=== PATIENT | female | born 1950 | race Caucasian/White ===

== ENCOUNTER 2024-05-24 09:38 | Inpatient (IN) ==
--- NOTE | 2024-04-18 13:48 | PAT Medication Instructions ---
Medication Instructions Date of Service April 18, 2024 Home Medications acetaminophen 650 mg tablet,extended release (Tylenol 8 Hour) 650 mg PO DAILY albuterol sulfate 90 mcg/actuation aerosol inhaler 1 inh inhalation QID PRN sob aspirin 81 mg tablet,delayed release 81 mg PO QAM atenolol 25 mg tablet 25 mg PO QAM clopidogrel 75 mg tablet (Plavix) 75 mg PO QAM diltiazem HCl 60 mg tablet 60 mg PO QAM docusate sodium 100 mg capsule 100 mg PO DAILY ezetimibe 10 mg tablet (Zetia) 10 mg PO HS famotidine 20 mg tablet 20 mg PO DAILY losartan 25 mg tablet 25 mg PO DAILY melatonin 3 mg tablet 3 mg PO HS rosuvastatin 40 mg tablet 40 mg PO HS trazodone 50 mg tablet 75 mg PO HS ASK your prescriber and surgeon aspirin 81 mg tablet,delayed release 81 mg PO QAM clopidogrel 75 mg tablet (Plavix) 75 mg PO QAM DO NOT take the morning of surgery docusate sodium 100 mg capsule 100 mg PO DAILY losartan 25 mg tablet 25 mg PO DAILY Take morning of surgery With a small sip of water, OTHERWISE NOTHING TO EAT OR DRINK AFTER MIDNIGHT: acetaminophen 650 mg tablet,extended release (Tylenol 8 Hour) 650 mg PO DAILY albuterol sulfate 90 mcg/actuation aerosol inhaler 1 inh inhalation QID PRN sob (use if needed; please bring rescue inhaler with you to hospital day of surgery if possible) atenolol 25 mg tablet 25 mg PO QAM diltiazem HCl 60 mg tablet 60 mg PO QAM Take evening before surgery acetaminophen 650 mg tablet,extended release (Tylenol 8 Hour) 650 mg PO DAILY albuterol sulfate 90 mcg/actuation aerosol inhaler 1 inh inhalation QID PRN sob (if needed) ezetimibe 10 mg tablet (Zetia) 10 mg PO HS melatonin 3 mg tablet 3 mg PO HS rosuvastatin 40 mg tablet 40 mg PO HS trazodone 50 mg tablet 75 mg PO HS Other Notes If you have any questions please call us at [phone] or [phone] or [phone] or [phone]
--- NOTE | 2024-04-25 13:14 | Anesthesiology Consultation ---
Date of Service April 25, 2024 Assessment & Plan (1) Encounter for pre-operative examination: - Infectious disease screening: Per assessment on 04/25/24- No known recent infectious disease contacts or current infectious disease symptoms. - LUE limb restriction - ASA/Plavix instructions per surgeon/prescriber - Vascular visit (01/02/24): "Regarding right leg.. Known R limb occlusion since 2018.. Some patency in upper [place] REIA/RIIA and femoral artery supplying the right leg.. Currently without rest pain, ulcers, or gangrene.. As previously mentioned, could attempt R groin exposure/endart + attempt to recanalize chronically occluded R limb; however, this carries GREAT risk (exposing prosthetic). Will reserve this procedure for limb-threatening situation.. Regard ing left leg.. L dist anastomosis with unchanged velocity.. 2023 CTA shows moderate disease... Discussed ongoing short-interval surveillance versus intervention - - Intervention could be: attempt at endo via arm (likely R given L subclavian disease) versus re-operative L groin.. For now, she declines surgical intervention.. Mild carotid disease, which can be medically managed. NO plan to re-image at present.. L subclavian occlusion; however, the BOYCE is wide off the HIEU.. Obtain BP readings in the right arm for accuracy given L subclavian disease and breast cancer. Continue 81 mg ASA daily for atherosclerosis/PAD/carotid disease/subclavian disease.. On 75 mg Plavix daily for CAD/CABG, per Cardiology Continue 40 mg Crestor daily and 10 mg Zetia for dyslipidemia.. RTC in [address] Montes De Oca at [place] with enrique and aortic duplex a few weeks prior" - [facility] Pharm[facility] Clinic visit (04/03/24): "Reviewed most recent lipid panel results with patient; discussed each component of lipid panel and optimal levels of such components.. LDL increased from last year.. We believe the increase in LDL was due to noncompliance..Called pharmacy today and pharmacist reports patient goes months without picking up pill packs and they have had several compliance conversations with patient..Today, patient is feeling well, no complaints. Discussed above noncompliance and patient does endorse not taking her Medications at least 10 days over the past month.. Last week, patient moved to pill packs from covert counter, which has helped her remember to take the medications. Patient will focus on medication compliance.." Recommend cholesterol panel 2nd-3rd week on May prior to back surgery (ideally week of 05/20/24). - Cardiology visit (04/03/24): "CAD (status post CABG x2 10/21/2008; HIEU to LAD and BOYCE off HIEU toLCx).. PAD (S/P aortobifemoral bypass in [place] 07/25/2000 for occlusive disease with claudication. R-limb known to be occluded since at least 2017).. Carotid artery disease (50-69% stenosis in right and left carotid arteries).. Patient presents for preoperative evaluation prior to back surgery. She states that despite thyroid back pain she has been relatively active. She denies chest pain, dyspnea, orthopnea, PND, lower extremity edema, palpitations, or syncope. She is able to walk up multiple flights of steps, scrubbed floors and move heavy furniture without any exertional symptoms.. On clinical exam she is euvolemic. ECG done today showed sinus rhythm with no acute ischemic changes. Patient able to get to more than 4 Mets of activity without any exertional symptoms. She is moderate risk for major adverse cardiac events from a cardiac standpoint. The risks discussed with patient and patient understands these risks. From a cardiac standpoint patient is okay to hold Plavix however she does have significant extensive peripheral arterial disease and would recommend discussing with Vascular Surgery as well if okay from their end to hold Plavix. Patient states that she has mistakenly not been taking her Crestor or Zetia for months prior to her most recent lipid panel. Her elevated LDL was most likely due to noncompliance. I advised patient about the importance of medication compliance. Patient understands this and will be more compliant.." - Pending: * Awaiting review of preop CXR- Done [facility] 04/25, report pending. * Awaiting surgeon-ordered PCP preop evaluation ([facility]/appt 04/26). * Awaiting preop cholesterol labs ([facility], [facility] 2nd-3rd week of May 2024). Chart Review Chart Review: Patient seen in Pre Admission Testing Teaching & Discussion Pre-Anesthesia Teaching/Discussion Notes: Instructed NPO after midnight before surgery,except medications with 15 cc of water. Medication instructions provided according to the PAT guidelines. History Surgery Operation Date: 05/24/24 09:35 Proposed Procedures p Removal Hardware L5-S1, Decompression and Fusion L4-L5, with Spinal Cord Monitoring - Nitish Morris DO Height/Weight Height: 5 ft Weight: 47.174 kg Allergies Allergy/AdvReac Type Severity Reaction Status Date / Time benzonatate Allergy Unknown Tessalon Verified 04/19/24 11:14 Perles- Rash gabapentin Allergy Bruising Verified 04/25/24 13:10 (per [facility] records) Medications Home Medications Medication Instructions Recorded Confirmed Last Taken acetaminophen 650 mg 650 mg PO DAILY 04/18/24 04/18/24 Unknown tablet,extended release (Tylenol 8 Hour) albuterol sulfate 90 mcg/actuation 1 inh inhalation QID PRN sob 04/18/24 04/18/24 Unknown aerosol inhaler aspirin 81 mg tablet,delayed 81 mg PO QAM 04/18/24 04/18/24 Unknown release atenolol 25 mg tablet 25 mg PO QAM 04/18/24 04/18/24 Unknown clopidogrel 75 mg tablet (Plavix) 75 mg PO QAM 04/18/24 04/18/24 Unknown diltiazem HCl 60 mg tablet 60 mg PO QAM 04/18/24 04/18/24 Unknown docusate sodium 100 mg capsule 100 mg PO DAILY 04/18/24 04/18/24 Unknown ezetimibe 10 mg tablet (Zetia) 10 mg PO HS 04/18/24 04/18/24 Unknown famotidine 20 mg tablet 20 mg PO DAILY 04/18/24 04/18/24 Unknown losartan 25 mg tablet 25 mg PO DAILY 04/18/24 04/18/24 Unknown melatonin 3 mg tablet 3 mg PO HS 04/18/24 04/18/24 Unknown rosuvastatin 40 mg tablet 40 mg PO HS 04/18/24 04/18/24 Unknown trazodone 50 mg tablet 75 mg PO HS 04/18/24 04/18/24 Unknown duloxetine 60 mg capsule,delayed 60 mg PO DAILY 04/25/24 04/25/24 Unknown release Past Medical History Medical History (Updated 04/25/24 @ 15:28 by Faith Finley) Asthma CAD (coronary artery disease) CABG x2 (2008) Carotid artery stenosis Carotid duplex 02/2023: < 50% B/L ICA stenosis Chronic back pain Degenerative disc disease History of COVID-2019- Asymptomatic Hx of breast cancer (2008) Left breast cancer- s/p surgical intervention + letrozole in the past LUE limb restriction Hyperlipidemia Hypertension Osteoarthritis Peripheral vascular disease Exercise / Class Metabolic Activity III < 4 Walking/Shop/Light housework Past Family History Family History Other No family history of adverse response to anesthesia Past Surgical History Surgical History H/O left mastectomy with lymph node removal History of colonoscopy History of open reduction and internal fixation (ORIF) procedure right ankle with hardware Hx of cardiac cath (2008) [facility] S/P CABG (coronary artery bypass graft) (2008) 2 vessels S/P epidural steroid injection S/P lumbar fusion S/P rotator cuff repair right shoulder S/P vascular bypass (07/2000) Aortic-femoral bypass graft ([facility]) Past Anesthesia History No Hx of Anesthesia Complications and No Family Hx of Anesthesia Complications History of PONV No Hx of Motion Sickness and History of PONV Social History Smoking Status: Current every day smoker Smoking cigarettes per day: 3 cigs/daily (advised on policy) Do You Dip or Chew Tobacco: No Hx Alcohol Use: No Hx Substance Use: No substance use type: does not use Review of Systems Patient denies chest pain, shortness of breath, dyspnea on exertion, fever, chills, cough, wheezing, palpitations. Physical Exam Vital Signs BP 150/84 P 65 TEMP 98.2 SP02 98%RA RESP 16 Physical Full cervical extension range of motion. Full TMJ range of motion. TMD 3 finger breaths Mallampati Score III Dentition: full upper/lower dentures Lungs: clear throughout to auscultation Cardiac: regular rate and rhythm, no murmurs noted Spine: normal Carotid arteries: B/L bruits Extremities: no LE edema Lab Results Anesthesia Preop Results Results Anesthesia Widget: WBC 8.59 K/ul (4.8-10.8) 04/25/24 Hgb 13.0 g/dl (12.0-16.0) 04/25/24 Hct 40.1 % (37.0-47.0) 04/25/24 Plt 194 K/uL (130-400) 04/25/24 Na 139 mmol/L (136-145) 04/25/24 K 4.8 mmol/L (3.5-5.1) 04/25/24 Cl 105 mmol/L (98-107) 04/25/24 CO2 29 mmol/L (21-32) 04/25/24 BUN 11 mg/dl (6-23) 04/25/24 Creat 0.45 mg/dl (0.6-1.2) L 04/25/24 Glucose Level 85 mg/dl (70-99(Fasting)) 04/25/24 PT 10.7 Seconds (9.0-12.0) 04/25/24 PTT 27 Seconds (21-31) 04/25/24 INR 1.0 (0.9-1.1) 04/25/24 Urine Color Yellow 04/25/24 Urine Appearance Clear (Clear) 04/25/24 Urine pH 5.5 (4.5-7.5) 04/25/24 Urine Specific [place] 1.017 (1.000-1.030) 04/25/24 Urine Protein Negative (Negative) 04/25/24 Urine Glucose (UA) Negative (Negative) 04/25/24 Urine Ketones Negative (Negative) 04/25/24 Urine Blood Negative (Negative) 04/25/24 Urine Nitrite Negative (Negative) 04/25/24 Urine Bilirubin Negative (Negative) 04/25/24 Urine Urobilinogen Negative (Negative) 04/25/24 Urine Leukocyte Esterase Negative (Negative) 04/25/24 Blood Type A Positive 04/25/24 Antibody Screen NEGATIVE 04/25/24 Testing Electrocardiogram Date: 04/03/24 NSR at 77bpm. Possible LAE. NS ST/TWA. unconfirmed tracings. Reviewed at preop cardiology visit from same day > "ECG done today showed sinus rhythm at no acute ischemic changes." Echocardiogram Date: 02/18/19 LVEF 60 to 64%. No LV segmental wall motion abnormalities. Nondilated cardiac chambers. No significant valvular disease. Grade 1 diastolic dysfunction. Other Testing Carotid duplex Date: 03/03/23 The right vertebral artery demonstrates antegrade flow. The left vertebral artery demonstrates retrograde flow. Short segment occlusion of the proximal left subclavian artery. Right carotid artery duplex examination indicates evidence of less than 50% stenosis of the internal carotid artery. Left carotid artery duplex examination indicates evidence of less than 50% stenosis of the internal carotid artery.
[~2024-05-24 09:38] MED LIST: ALLERGY Noted to ORDERED Medication SCH
[2024-05-24] MEDS: ACETAMINOPHEN 500 MG TAB PO SCH (10:44)
[2024-05-24] MEDS: LR 15ML/HR IV SCH (10:45)
[2024-05-24] MEDS: CeleBREX 200 MG CAP PO SCH (10:45)
[2024-05-24] MEDS: LR 60ML/HR IV SCH (10:45)
[2024-05-24] MEDS: GABAPENTIN 300 MG CAP PO SCH (10:45)
[2024-05-24] MEDS ORDERED: fentaNYL citrate PF 100 MCG/2 ML VIAL ONE ×2 (10:54→13:25)
--- NOTE | 2024-05-24 12:13 | History & Physical Bridge Note ---
Date of Service May 24, 2024 History & Physical Bridge Note I have examined the patient, reviewed the History & Physical and in the interval since the performance of the History & Physical I have noted the following changes of clinical significance: no changes noted
--- NOTE | 2024-05-24 12:14 | History & Physical Report ---
Date of Service May 24, 2024 Assessment & Plan (1) Lumbosacral spondylosis with radiculopathy: Plan: Removal of hardware L5-S1 decompression and fusion L4-L5 History of Present Illness Chief Complaint: Back and bilateral leg pain Primary Care Provider: Rei Magana MD This is a 73-year-old female known to me the presents with chronic persistent back and bilateral leg pain after failing course of nonoperative care is here for surgical invention. Allergies Allergy/AdvReac Type Severity Reaction Status Date / Time benzonatate Allergy Unknown Tessalon Verified 05/24/24 10:26 Perles- Rash gabapentin Allergy Bruising Verified 05/24/24 10:26 (per [facility] records) Home Medications Medication Instructions Recorded Confirmed Type acetaminophen 650 mg 650 mg PO DAILY 04/18/24 05/24/24 History tablet,extended release (Tylenol 8 Hour) albuterol sulfate 90 mcg/actuation 1 inh inhalation QID PRN sob 04/18/24 05/24/24 History aerosol inhaler aspirin 81 mg tablet,delayed 81 mg PO QAM 04/18/24 05/24/24 History release atenolol 25 mg tablet 25 mg PO QAM 04/18/24 05/24/24 History clopidogrel 75 mg tablet (Plavix) 75 mg PO QAM 04/18/24 05/24/24 History diltiazem HCl 60 mg tablet 60 mg PO QAM 04/18/24 05/24/24 History docusate sodium 100 mg capsule 100 mg PO DAILY 04/18/24 05/24/24 History ezetimibe 10 mg tablet (Zetia) 10 mg PO HS 04/18/24 05/24/24 History famotidine 20 mg tablet 20 mg PO DAILY 04/18/24 05/24/24 History losartan 25 mg tablet 25 mg PO DAILY 04/18/24 05/24/24 History melatonin 3 mg tablet 3 mg PO HS 04/18/24 05/24/24 History rosuvastatin 40 mg tablet 40 mg PO HS 04/18/24 05/24/24 History trazodone 50 mg tablet 75 mg PO HS 04/18/24 05/24/24 History duloxetine 60 mg capsule,delayed 60 mg PO DAILY 04/25/24 05/24/24 History release Past Med/Surg History Problem List (Updated 05/24/24 @ 12:14 by Nitish Morris DO) Lumbosacral spondylosis with radiculopathy Encounter for pre-operative examination Medical History (Updated 05/24/24 @ 12:14 by Nitish Morris DO) Carotid artery stenosis Carotid duplex 02/2023: < 50% B/L ICA stenosis CAD (coronary artery disease) CABG x2 (2008) Osteoarthritis Degenerative disc disease Chronic back pain Peripheral vascular disease History of COVID-2019- Asymptomatic Hx of breast cancer (2008) Left breast cancer- s/p surgical intervention + letrozole in the past LUE limb restriction Hyperlipidemia Hypertension Asthma Surgical History Hx of cardiac cath (2008) [facility] History of colonoscopy S/P epidural steroid injection S/P rotator cuff repair right shoulder History of open reduction and internal fixation (ORIF) procedure right ankle with hardware S/P lumbar fusion H/O left mastectomy with lymph node removal S/P CABG (coronary artery bypass graft) (2008) 2 vessels S/P vascular bypass (07/2000) Aortic-femoral bypass graft ([facility] [place]) Family History Other No family history of adverse response to anesthesia Social History Smoking Status: Current every day smoker Tobacco Type: Cigarettes Cigarettes Per Day: 3 cigs/daily (advised on policy); Second Hand Exposure: No; Do You Dip or Chew Tobacco: No; Tobacco Cessation Education Requested by Patient: No Hx Alcohol Use: No Hx Substance Use: No Preferred Language: Greek Communication Ability: Effective Customer Service Technician Required: No Beliefs That Will Affect Care: None Current Living Situation: Alone Other Information That Helps Us Care for You: No Feels Safe at Home: Yes Safety Concerns: Feels Safe At This Time Assistive Devices: Cane, Denture - Upper, Denture - Lower, Glasses and Walker Assistive Devices Comment: cane/walker prn Physical Exam Physical Exam: Patient is alert and oriented Heart regular rhythm Lungs clear Results & Data Results & Data Vital Signs (Past 12 Hours) Vital Signs Temp Pulse Resp BP Pulse Ox O2 Del Method 05/24/24 10:31 36.7 C 99 H 18 144/94 H 97 Room Air
[2024-05-24] MEDS ORDERED: ePHEDrine sulfate 50 MG/ML AMP IV PRN (12:37)
[2024-05-24] MEDS ORDERED: ATROPINE SULFATE 0.1 MG/ML 10ML SYR IV PRN (12:37)
[2024-05-24] MEDS ORDERED: ONDANSETRON INJ 2 MG/ML 2 ML VIAL IV PRN ×2 (12:37→17:36)
[2024-05-24] MEDS ORDERED: PROMETHAZINE HCL 6.25 MG in SODIUM CHLORIDE 0.9% 50 ML IV PRN (12:37)
[2024-05-24] MEDS ORDERED: HYDROmorphone INJ 2 MG/ML SYR/VIAL IV PRN (12:37)
[2024-05-24] MEDS: ceFAZolin 2000MG 2,000 MG/15 ML SYR IV SCH (12:54)
[2024-05-24] MEDS ORDERED: ONDANSETRON INJ 2 MG/ML 2 ML VIAL ONE (13:14)
[2024-05-24] MEDS ORDERED: PROPOFOL IV EMULSION 10 MG/ML 20 ML VIAL IV ONE (13:14)
[2024-05-24] MEDS ORDERED: ROCURONIUM BROMIDE 10 MG/ML 5 ML VIAL IV ONE ×2 (13:14→13:20)
[2024-05-24] MEDS ORDERED: DEXAMETHASONE SOD INJ 4 MG/ML VIAL ONE (13:14)
[2024-05-24] MEDS ORDERED: LIDOCAINE 2% 2 ML VIAL/AMP(20MG/ML) INFIL ONE (13:14)
[2024-05-24] MEDS: BUPIVACAINE/EPINEPHRINE 0.25% 1:200,000 30 ML VIAL ONE (13:34)
--- OUTSIDE RECORDS SUMMARY | 2024-05-24 13:51 | External Medical Summary | Summary of Care ---
Author Name Unknown Organization [facility] Address [address] [place] [address] Phone [phone] Care Team Providers Care Certified Drug Counselor Name Role Phone Finesse Hemphill PA-C Primary Care Provide r Reason for Referral * Evaluate & Treat - Unlimited Visits (Within 3 days (urgent)) - Authorized Specialty Diagnoses / Procedures Referred By Contac t Referred To Contact Pulmonary Diseases / Pulmonary Diagnoses Solitary pulmonary nodule Juan Maza MD [address] [place] [address] Phone: tel: fax: Referral ID Status Reason Start Date Expiration Date Visits Requested Visits Authorized [id number] Authorized Specialty Services Required 05/20/[phone] Question Answer Referral Priority Within 3 Days (Urgent) Primary Reason for Referral? Lung Nodule/Mass Reason for Visit * Reason Onset Date Comments STAIR Lung Nodule 05/20/2024 Encounter Details Date Type Department Care Team ([facility] Contact Info) Description 05/20/2024 Telephone STAIR LUNG NODULE [address] [place] [address] Program, Stair [address] [place] [address] STAIR Lung Nodule Allergies Active Allergy Reactions Criticality Noted Date Comments Gabapentin 09/28/[address] 06/18/2013 PER PATIENT--RASH --ITCHY ALL OVER. 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 Use as directed. 1 Each 1 04/08/20 17 Active SENNA-TABS 8.6 MG TabletIndications:C onstipation, unspecified constipation type TAKE 1 TABLET BY MOUTH AT BEDTIME 90 Tab 1 12/11/19 20 Active Acetaminophen ER 650 MG Oral Tablet Extended Release Take 1 Tablet by mouth every 8 hours as needed. Active Atenolol 25 MG Oral Tablet (Tenormin)Indicatio ns:HTN, goal below 130/80 Take 1 Tablet by mouth in the morning. 90 Tablet 3 05/04/20 23 Active DULoxetine HCl 60 MG Oral Capsule Delayed Release Particles (Cymbalta)Indicatio ns:Recurrent major depressive disorder, in partial remission (HCC),S/P lumbar spine operation Take 1 Capsule by mouth in the morning. 90 Capsule 3 05/04/20 23 Active Ezetimibe 10 MG Oral Tablet (Zetia)Indications: Dyslipidemia, goal LDL below 70 TAKE 1 TABLET BY MOUTH AT BEDTIME 90 Tablet 3 05/04/20 23 Active traZODone HCl 50 MG Oral Tablet (Desyrel)Indication s:Recurrent major depressive disorder, in partial remission (HCC) Take 1.5 Tablets by mouth at bedtime. 135 Tablet 3 05/04/20 23 Active Aspirin 81 MG Oral Tablet Delayed Release (GNP Aspirin)Indications :Recurrent major depressive disorder, in partial remission (HCC) Take 1 Tablet by mouth in the morning. 90 Tablet 3 06/16/19 24 Active Albuterol Sulfate HFA 108 (90 Base) MCG/ACT Inhalation Aerosol SolutionIndications :COPD, mild (HCC) Inhale 2 Puffs by mouth 4 times a day as needed for Shortness of Breath. 18 g 3 09/12/19 24 Active Fluticasone Propionate 50 MCG/ACT Nasal Suspension (Flonase)Indication s:Acute non-recurrent maxillary sinusitis Administer 2 Sprays into each nostril in the morning. 16 g 2 09/12/19 24 Active Melatonin 3 MG Oral TabletIndications:R ecurrent major depressive disorder, in partial remission (HCC) TAKE 2 TABLETS BY MOUTH AT BEDTIME 60 Tablet 3 01/30/20 24 Active Docusate Sodium 100 MG Oral Capsule (Colace)Indications :Recurrent major depressive disorder, in partial remission (HCC) TAKE 2 CAPSULES BY MOUTH EVERY DAY 60 Capsule 3 01/30/20 24 Active Nitroglycerin 0.4 MG Sublingual Tablet Sublingual (Nitrostat)Indicati ons:Atherosclerosis of [place] coronary artery of kake heart without angina pectoris Place 1 Tablet under the tongue every 5 minutes as needed for Pain, Chest. 25 Tablet 1 02/23/20 24 Active Clopidogrel Bisulfate 75 MG Oral Tablet (pLAVix)Indications :Coronary atherosclerosis of [place] coronary artery TAKE 1 TABLET BY MOUTH EVERY DAY MORNING 90 Tablet 03/05/20 24 Active Famotidine 20 MG Oral Tablet (Pepcid)Indications :Dyslipidemia TAKE 1 TABLET BY MOUTH EVERY DAY 90 Tablet 1 03/02/20 24 Active Losartan Potassium 25 MG Oral Tablet (Cozaar) TAKE 1 TABLET BY MOUTH EVERY DAY 90 Tablet 1 03/02/20 24 Active Rosuvastatin Calcium 40 MG Oral Tablet (Crestor)Indication s:Dyslipidemia TAKE 1 TABLET BY MOUTH AT BEDTIME 90 Tablet 03/05/20 24 Active documented as of this encounter (statuses as of 05/23/2024) Active Problems Problem Noted Date Diagnosed Date Recurrent major depressive disorder, in partial remission 07/26/2022 Coronary artery disease invo lving kake coronary artery of kake heart without angina pectoris 07/26/2022 Atherosclerosis of coronary artery bypass graft(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 Morris. Centrilobular emphysema 03/17/2017 History of breast cancer 12/19/2013 Persistent insomnia 12/02/2013 Tobacco abuse 06/10/2013 Asymptomatic bilateral carotid artery stenosis 1 Dyslipidemia, goal LDL below 70 02/16/2011 Aortocoronary bypass status 02/02/2011 HTN, goal below 130/80 documented as of this encounter (statuses as of 05/23/2024) Resolved Problems Problem Noted Date Diagnosed Date Resolved Date Idiopathic aseptic necrosis of right femur 02/18/2021 07/26/2022 Alcohol abuse with intoxication, unspecified 06/02/2021 Morbid (severe) obesity due to excess calories 09/17/2020 02/18/2021 Collapse of thoracic vertebr a with routine healing 09/17/2020 03/29/2022 Overview (03/29/2022): history Updated to be more specific. Other hyperlipidemia 09/17/2020 0818/ 022 Bimalleolar ankle fracture, right, open type I or II, with routine healing, subsequent encounter 08/03/2020 06/02/2021 Nontoxic single thyroid nodule 06/21/2019 07/26/2022 Prediabetes 02/26/2019 03/21/2024 Avascular necrosis 11/01/2018 9 Bilateral sacroiliitis 08/01/201810/05 Gastroesophageal reflux dise ase with esophagitis 02/19/2018 06/02/2021 Acute cystitis with hematuria 12/05/2017 03/23/2018 Dyslipidemia 08/22/2017 05/16/2023 Sprain of ligaments of thoracic spine 06/28/2017 08/22/2017 Atherosclerosis of k[place] co ronary artery of kake heart without angina pectoris 03/17/201712/2020 Overview (03/15/2021): More specific code in use. Recurrent major depressive d isorder, in partial remission 03/17/2017 06/02/2021 Claudication in peripheral vascular disease 03/17/2017 07/26/2022 Back pain, lumbosacral 02/20/201711/29 Multiple lung nodules 07/13/20162017 Depression with anxiety 10/08/201503/08 Dependent edema 2015 03/17/2017 Atherosclerosis of [place] co ronary artery without angina pectoris 08/10/2015 03/17/2017 Breast cancer 06/10/2013 05/19/2015 COPD, mild 06/10/2013 09/29/2016 Peripheral vascular disease 02/02/2011 03/17/2017 CORONARY ATHEROSCLEROSIS VESSEL NOS 12/27/2007 08/10/2015 Asthma in COPD 12/27/2007 03/02/2015 Dyslipidemia, goal to be determined 12/27/2007 04/21/2009 Overview (04/21/2009): Per Lipid Taxonomy. 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, UNSPECIFIED SITE 12/27/2007 03/02/2015 ADJ DISORDER W/DEPRES MOOD 12/27/2007 0 2015 documented as of this encounter (statuses as of 05/23/2024) Immunizations Name Administration Dates Next Due PPD 06/20/2020,05/19/2020 Pneumococcal Conjugate Vacc, 13 Valent (Prevnar) 02/20/2017 Pneumococcal Polysaccharide PPV23 (Pneumovax) ,03/19/2012 Season Influenza, Quad, PF, Adjuvanted, 65+ Yrs, IM (FLUAD) 01/16/2020 Seasonal Influenza, High Dos e, Trivalent, PF, IM (Fluzone HD) 01/18/2024 Seasonal Influenza, Quadrivalent Hd (Fluzone Hd) 02/18/2021 Seasonal Influenza, Trivalen t, Adjuvanted, 65+ YRS, PF, (Fluad) 02/26/2019 TDAP (age 10 and older)(Boostrix) 08/01/2018 Zoster Vaccine Recombinant (Shingrix) 05/16/2019 ,03/07/2019 documented as of this encounter Social History Tobacco Use Types Packs/Day Years Used Date Smoking Tobacco: Every Day Cigarettes 0.2 62 Started: 1961 Smokeless Tobacco: Never Tobacco Cessation:Ready to Q uit: Not Asked; Counseling Given: Not Answered Comments:Up to 1/2 ppd as of 04/03/24 Alcohol Use Standard Drinks/Week Comments Not Currently 19 (1 standard drink = 0.6 oz pu re alcohol) quit drinking 2020 AUDIT-C Answer Date Recorded Frequency of Alcohol Consumption 2-4 times a mon02/12/2019 Average Number of Drinks Not on file 019 Frequency of Binge Drinking Weekly 12/2018 PHQ-2 Answer Date Recorded PHQ Adult Total Score 0 01/18/2024 Hunger Vital Sign Answer Date Recorded Within the past 12 months, y ou worried that your food would run out before you got the money to buy more. Never true 01/18/20 24 Within the past 12 months, t he food you bought just didn't last and you didn't have money to get more. Never true 01/18/2024 Childcare Answer Date Recorded Do you feel overwhelmed with taking care of a child, family member or friend? No 01/18/2024 Does your family need help f inding childcare? (Household - for ages 0-17 years) Not on file 01/18/2024 Clothing Answer Date Recorded Have you been unable to get clothing when it was really needed? No 01/18/2024 Is your family able to get c lothes or diapers when needed? (Household - for ages 0-17 years) Not on file 01/18/2024 Personal Safety Answer Date Recorded Do you feel unsafe or have concerns for your saf ety? No 01/18/2024 Do you have concerns for you r family's safety? (Household - for ages 0-17 years) Not on file 01/18/2024 Utilities Answer Date Recorded Do you have trouble paying y our heating, water, or electric bill? No 01/18/2024 Is your family able to pay t he heat, water, or electric bill? (Household - for ages 0-17 years) Not on file 01/18/2024 Does your family have access to good internet? (Household - for ages 0-17 years) Not on file 01/18/2024 Employment Status Answer Date Recorded Are you unemployed or without regular income? No 01/18/2024 Does the household have a re gular source of income? (Household - for ages 0-17 years) Not on file 01/18/2024 Social Connections Answer Date Recorded How often do you feel lonely or isolated from th ose around you? Never 01/18/2024 Financial Resource Strain Answer Date R ecorded Do you have any trouble payi ng for your medications, or do you think you might in the future? No 01/18/2024 Does your family have troubl e paying for medicine? (Household - for ages 0-17 years) Not on file 01/18/2024 Transportation Needs Answer Date Record ed Do you have trouble getting a ride to medical visits or work? (Adult - for ages 18 years and over) Not on file 01/18/2024 Does your family have a hard time getting a ride to doctors visits? (Household - for ages 0-17 years) Not on file 01/18/2024 Has lack of transportation k ept you from medical appointments, meetings, work, or from getting things needed for daily living? Check all that apply. No 01/18/2024 Do you (or your family) have trouble finding or paying for a ride (transportation)? (Household - for ages 0-17 years) Not on file 01/18/2024 Housing Stability Answer Date Recorded Do you currently live in a s helter or have no steady place to sleep at night? No 01/18/2024 Do you think you are at risk of becoming homeless? (Adult - for ages 18 years and over) Not on file 01/18/2024 Does your family worry about paying for your home or becoming homeless? (Household - for ages 0-17 years) Not on file 0 01/18/2024 Are you homeless or worried that you might be in the future? No 01/18/2024 Are you (or your family) mario eless or worried that you might be in the future? (Household - for ages 0-17 years) Not on file Food Insecurity Answer Date Recorded Do you need food for this week? No 01/18/2024 Are you able to get enough f ood for your family? (Household - for ages 0-17 years) Not on file 01/18/2024 Does your family need food t his week? (Household - for ages 0-17 years) Not on file 01/18/2024 Do you always have enough fo od for your family? 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 Not on file Not on file Not on file documented as of this encounter Miscellaneous Notes * Telephone Encounter - Jaylene Britt LPN - 05/20/2024 10:32 AM EST Images requested from [facility] Patient managed in STAIR Program for Pulmonary Nodule - banner added * Telephone Encounter - Linda Nolan RN - 05/20/2024 9:21 AM EST Lung Cancer Screening Program ([facility]) Results Call Summary 05/20/2024 LDCT results reviewed with patient See care everywhere for imaging Smoking reviewed Referral placed to STAIR Low Dose CT Lung-RADS Scoring: Lung-RADS Score 3 (probably benign) - care transferred to STAIR program for clinical review, setting care plan, and tracking. (STAIR Team: Patient Identified by Lung Cancer Screening Program. If CT Scan needed, order CT Chest Lung Cancer Screen 3 or 6 Month Follow Up). I have contacted the patient to review the low dose CT results, discuss next steps per Lung Cancer Screening Program Protocol, and address any questions. Linda Nolan RN Lung Cancer Screening [place] [phone] ([phone] documented in this encounter Plan of Treatment Upcoming Encounters Date Type Department Care Team (Late st Contact Info) Description 06/04/2024 8:00 AM EST Telemedicine Cardiology [facility] [place] [address] [place] [facility] [place] [address] [place] [address], Pharmacist Cardiology [facility] [address] [place] [address] 08/23/2024 10:30 AM EDT Office Visit Cardiology[facility] [address] [facility] [place] [address] Lucio Em DO [address] [facility] [place] [address] 09/13/2024 11:40 AM EDT Office Visit Family Practice [address] [place] [address] Eduardo No MD [address] [place] [address] 10/03/2024 9:30 AM EDT [facility] [address] [facility] [place] [address] Lucio Em DO [address] [facility] [place] [address] 01/23/2025 10:00 AM EDT Nurse Only Ancillary [address] [place] [address] Ana Luisa, Nurse Annual Wellness [facility] [address] [place] [address] Scheduled Procedures Name Priority Associated Diagnoses Date/Ti me COLONOSCOPY FLEXIBLE PROXIMA L DIAGNOSTIC Recall History of colonic polyps Scheduled Referrals Name Type Priority Associated Diagnoses Order Schedule STAIR LUNG NODULE REFERRAL OP (SYSTEM FOR TRACKING ABNORMALITIES OF IMPORTANCE RELIABLY) Referral Within 3 days (urgent) Solitary pulmonary nodule Ordered: 05/20/2024 Health Maintenance Due Date Last Done Comments Cologuard 10/07/1996 Sigmoidoscopy 10/07/1996 Fecal Occult Blood Test 12/19/2014 12/19/2013 DISCUSS TOBACCO CESSATION (REFER TO SMARTSET #6230) 12/25/2021 12/25/2020, 12/31/2015, 12/24/2012 Mammogram 09/29/2023 09/28/2022, 04/0 08/2021, 05/29/2019, Additional history exists COVID-19 Vaccine (2023- season) 2024 GFR 10/26/2024 10/27/2023, 07/07, 12/23/2021, Additional history exists Adult Wellness Visit 01/17/2025 01/18/2024, 09/23/19 23 Depression Monitoring 01/17/2025 01/18/2024, 024 O2 ASSESSMENT COMPLETED IN PAST YEAR FOR COPD 02/18/2025 02/19/2024 Albumin/Creatinine Ratio 07/26/2025 07/26/2022, 10/06 DTap/Tdap Vaccines (2 - Td or Tdap) 08/01/2028 08/01/2018 Colonoscopy 02/18/2029 02/19/2024, 02/05, 11/27/2018, Additional history exists Colorectal Cancer Screening 02/18/2029 DXA Scan 10/05/2030 10/06/2023, 08/02/2016 Pneumococcal Vaccine: 50+ Years Completed 10/17/2018, 02/20/2017, 03/19/2012 Alpha-1 Antitrypsin Completed 02/13/2019 Zoster Vaccines Completed 05/16/2019, 03/07/2019 Influenza Vaccine (FLU shot) Completed 01/18/2024, 01/18/2024, 02/18/2021, Additional history exists RETIRED - COLONOSCOPY-EVERY 5 YRS AGES 18-100 Discontinued 02/19/2024, 02/19/2024, 11/27/2018, Additional history exists HPV (Gardasil) Vaccine Aged Out No lo nger eligible based on patient's age to complete this topic Hepatitis B Vaccine Aged Out No longe r eligible based on patient's age to complete this topic MENINGOCOCCAL (MENACTRA/MENVEO) Aged Out No longer eligible based on patient's age to complete this topic documented as of this encounter Medical Devices Not on filedocumented as of this encounter Visit Diagnoses Diagnosis Solitary pulmonary nodule- Primary documented in this encounter Advance Directives Documents on File Type Date Recorded Patient Engineering Designer Expl anation POLST 06/02/2020 POLST TYE LARA ORDERS FOR LIFE-SUSTAINING TREATMENT Care Teams Certified Drug Counselor Relationship Specialty Start Date End Date Finesse Hemphill PA-C [address] [facility] [place] [address] PCP - General Physician Transport Aircrewman 03/31/23 documented as of this encounter
--- OUTSIDE RECORDS SUMMARY | 2024-05-24 13:51 | External Medical Summary | Summary of Care ---
Author Name Unknown Organization [facility] Address [address] [place] [address] Phone [phone] Care Team Providers Care Sed Middle School Teacher Name Role Phone Finesse Hemphill PA-C Primary Care Provide r Reason for Referral * Evaluate & Treat - Unlimited Visits (Within 3 days (urgent)) - Authorized Specialty Diagnoses / Procedures Referred By Contac t Referred To Contact Pulmonary Diseases / Pulmonary Diagnoses Solitary pulmonary nodule Juan Maza MD [address] [place] [address] Phone: tel: fax: Referral ID Status Reason Start Date Expiration Date Visits Requested Visits Authorized [id number] Authorized Specialty Services Required 05/20/[phone] Question Answer Referral Priority Within 3 Days (Urgent) Primary Reason for Referral? Lung Nodule/Mass Reason for Visit * Reason Onset Date Comments STAIR Lung Nodule 05/20/2024 Encounter Details Date Type Department Care Team ([facility] Contact Info) Description 05/20/2024 Telephone STAIR LUNG NODULE [address] [place] [address] Program, Stair [address] [place] [address] STAIR Lung Nodule Allergies Active Allergy Reactions Criticality Noted Date Comments Gabapentin 09/28/[address] 06/18/2013 PER PATIENT--RASH --ITCHY ALL OVER. 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 Use [...] MG Sublingual Tablet Sublingual (Nitrostat)Indicati ons:Atherosclerosis of [place] coronary artery of [place] heart without angina pectoris Place 1 Tablet under the tongue every 5 minutes as needed for Pain, Chest. 25 Tablet 1 02/23/20 24 Active Clopidogrel Bisulfate 75 MG Oral Tablet (pLAVix)Indications :Coronary atherosclerosis of [place] coronary artery TAKE 1 TABLET BY MOUTH [...] as of this encounter (statuses as of 05/20/2024) Active Problems Problem Noted Date Diagnosed Date Recurrent major depressive disorder, in partial remission 07/26/2022 Coronary artery disease invo lving [place] coronary artery of [place] heart without angina pectoris 07/26/2022 Atherosclerosis of [...] as of this encounter (statuses as of 05/20/2024) Resolved Problems Problem Noted Date Diagnosed Date [...] of thoracic spine 06/28/2017 08/22/2017 Atherosclerosis of [place] co ronary artery of [place] heart without angina pectoris 03/17/201712/2020 Overview (03/15/2021): More specific code in use. Recurrent major depressive d isorder, in partial remission 03/17/2017 06/02/2021 Claudication in peripheral vascular disease 03/17/2017 07/26/2022 Back pain, lumbosacral 02/20/201711/29 Multiple lung nodules 07/13/20162017 Depression with anxiety 10/08/201503/08 Dependent edema 2015 03/17/2017 Atherosclerosis of [place] co ronary artery without angina pectoris 08/10/2015 [...] as of this encounter (statuses as of 05/20/2024) Immunizations Name Administration Dates Next Due PPD [...] 05/20/2024 10:32 AM EST Images requested from [facility] Patient managed in STAIR Program for [...] questions. Linda Nolan RN Lung Cancer Screening Centerless Grinding Machine Adjuster [phone] ([phone] documented in this encounter Plan of Treatment Upcoming Encounters Date Type Department Care Team (Late st Contact Info) Description 06/04/2024 8:00 AM EST Telemedicine Cardiology [facility] [place] [address] [place] [address] [place] [address], Pharmacist Cardiology [facility] [address] [place] [address] 08/23/2024 10:30 AM EDT Office Visit [facility] [address] [facility] [place] [address] Lucio Em DO [address] [facility] [place] [address] 09/13/2024 11:40 AM EDT Office Visit Family Practice [address] [place] [address] Eduardo No MD [address] [place] [address] 10/03/2024 9:30 AM EDT [facility] [place] [address] [facility] [place] [address] Lucio Em DO [address] [facility] [place] [address] 01/23/2025 10:00 AM EDT Nurse Only Ancillary [address] [place] [address] Ana Luisa, Nurse Annual Wellness [facility] [address] [place] [address] Scheduled Procedures Name Priority Associated Diagnoses Date/Ti [...] 12/19/2013 DISCUSS TOBACCO CESSATION (REFER TO SMARTSET #4871) 12/25/2021 12/25/2020, 12/31/2015, 12/24/2012 Mammogram 09/29/2023 09/28/2022, [...] Discontinued 02/19/2024, 02/19/2024, 11/27/2018, Additional history exists Lung Cancer Screening Completed 05/17/2024 , 05/16/2023, 02/13/2023, Additional history exists HPV (Gardasil) Vaccine Aged [...] Documents on File Type Date Recorded Patient Joint Supervisor Expl anation DENISE 06/02/2020 DENISE LARA ORDERS FOR LIFE-SUSTAINING TREATMENT Care Teams Sed [employer] Teacher Relationship Specialty Start Date End Date Finesse Hemphill PA-C [address] [facility] [place] [address] PCP - General Physician Clinical Editor 03/31/23 documented as of this encounter
--- OUTSIDE RECORDS SUMMARY | 2024-05-24 13:51 | External Medical Summary | Summary of Care ---
Author Name Unknown Organization [facility] Address [address] [place] [address] Phone [phone] Care Team Providers Care Sleeping Car Service Attendant Name Role Phone Finesse Hemphill PA-C Primary Care Provide r Reason for Referral * Evaluate & Treat - Unlimited Visits (Within 3 days (urgent)) - Authorized Specialty Diagnoses / Procedures Referred By Contac t Referred To Contact Pulmonary Diseases / Pulmonary Diagnoses Solitary pulmonary nodule Juan Maza MD [address] [place] [address] Phone: tel: fax: Referral ID Status Reason Start Date Expiration Date Visits Requested Visits Authorized [id number] Authorized Specialty Services Required 05/20/[phone] Question Answer Referral Priority Within 3 Days (Urgent) Primary Reason for Referral? Lung Nodule/Mass Reason for Visit * Reason Onset Date Comments STAIR Lung Nodule 05/20/2024 Encounter Details Date Type Department Care Team ([facility] Contact Info) Description 05/20/2024 Telephone STAIR LUNG NODULE [address] [place] [address] Program, Stair [address] [place] [address] STAIR Lung Nodule Allergies Active Allergy Reactions Criticality Noted Date Comments Gabapentin 09/28/[address] 06/18/2013 PER PATIENT--RASH --ITCHY ALL OVER. 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 [...] MG Sublingual Tablet Sublingual (Nitrostat)Indicati ons:Atherosclerosis of [place] coronary artery of [place] heart without angina pectoris Place 1 Tablet under the tongue every 5 minutes as needed for Pain, Chest. 25 Tablet 1 02/23/20 24 Active Clopidogrel Bisulfate 75 MG Oral Tablet (pLAVix)Indications :Coronary atherosclerosis of [place] coronary artery TAKE 1 TABLET BY MOUTH [...] remission 07/26/2022 Coronary artery disease invo lving [place] coronary artery of [place] heart without angina pectoris 07/26/2022 Atherosclerosis of [...] of thoracic spine 06/28/2017 08/22/2017 Atherosclerosis of [place] co ronary artery of [place] heart without angina pectoris 03/17/201712/2020 Overview (03/15/2021): More specific code in use. Recurrent major depressive d isorder, in partial remission 03/17/2017 06/02/2021 Claudication in peripheral vascular disease 03/17/2017 07/26/2022 Back pain, lumbosacral 02/20/201711/29 Multiple lung nodules 07/13/20162017 Depression with anxiety 10/08/201503/08 Dependent edema 2015 03/17/2017 Atherosclerosis of [place] co ronary artery without angina pectoris 08/10/2015 [...] Used Date Smoking Tobacco: Every Day Cigarettes 0.5 62 Started: 1962 Smokeless Tobacco: Never Comments:Up to 1/2 ppd as of 04/03/24 [...] encounter Miscellaneous Notes * Telephone Encounter - Linda Nolan RN - 05/20/2024 9:21 AM EST Lung Cancer Screening Program (LCSP) Results Call Summary 05/20/2024 LDCT results reviewed with patient See care everywhere for imaging Smoking reviewed Referral placed to [facility] Low Dose CT Lung-RADS Scoring: Lung-RADS Score 3 (probably benign) [facility] care [facility], and [...] questions. Linda Nolan RN Lung Cancer Screening Catalog Library Assistant [phone] ([id number]) documented in this encounter Plan of Treatment Upcoming Encounters Date Type Department Care Team (Late st Contact Info) Description 06/04/2024 8:00 AM EST Telemedicine Cardiology [facility], [place] [address] [place] [address] [facility], Pharmacist Cardiology [facility] [address] [place] [address] 08/23/2024 10:30 AM EDT Office Visit Cardiology, [place] [address] [place] [address] Lucio Em DO [address] [place] [address] 09/13/2024 11:40 AM EDT Office Visit Family Practice Paulina Rey Sánchez [address] [facility] [place] [address] Eduardo No MD [address] [place] [address] 10/03/2024 9:30 AM EDT Office Visit [place] [address] [place] [address] [facility] [address] [facility] [address] 01/23/2025 10:00 AM EDT Nurse Only Ancillary Paulina Zoya Sánchezdon [address] [facility] [place] [address] [place], Nurse Annual Wellness [facility] [address] [place] [address] Scheduled Procedures Name Priority Associated Diagnoses Date/Ti [...] 12/19/2013 DISCUSS TOBACCO CESSATION (REFER TO SMARTSET #9424) 12/25/2021 12/25/2020, 12/31/2015, 12/24/2012 Mammogram 09/29/2023 09/28/2022, [...] Documents on File Type Date Recorded Patient Compliance Officer Expl anation POLST 06/02/2020 DENISE LARA ORDERS FOR LIFE-SUSTAINING TREATMENT Care Teams Sleeping Car Service Attendant Relationship Specialty Start Date End Date Finesse Hemphill PA-C [address] [facility] [place] [id number] PCP - General Physician Skid Man 03/31/23 documented as of this encounter
--- OUTSIDE RECORDS SUMMARY | 2024-05-24 13:52 | External Medical Summary ---
Author Name Unknown Address Unknown Organization K01:[facility] [address] [facility] [address] Laboratory Report Ordering Provider Test Date Status BRODY RIDLEY 05/17/2024 10:54:54 Final Observation Date Value Abnormality Reference (Units ) Status Triglyceride 05/17/2024 10:54:54 51 <=174 ( mg/dL) Final Triglyceride Reference Range s (mg/dL):
<150 Acceptable
150-174 Borderline high
175-499 High
>=500 Very high Cholesterol 05/17/2024 10:54:54 113 <200 (mg /dL) Final Total Cholesterol Reference Ranges (mg/dL):
<200 Desirable
200-239 Borderline high
>=240 High HDL 05/17/2024 10:54:54 54 >49 (mg/dL ) Final HDL Cholesterol Reference Ra nges (mg/dL):
>=60 High (Desirable)
<50 Low (Undesirable) For Females
<40 Low (Undesirable) For Males NON-HDL CHOLESTEROL 05/17/2024 10:54:54 59 <=159 (mg/dL) Final Non-HDL Cholesterol Referenc e Range (mg/dL):
<100 Target level for high risk ASCVD patient
<130 Optimal for general population
130-159 Near optimal for general population
160-189 Borderline High
190-219 High
>=220 Very High LDL, (calculated) 05/17/2024 10:54:54 49 <= 129 (mg/dL) Final LDL Cholesterol Reference Ra nges (mg/dL):
<70 Target level for high risk ASCVD patient
<100 Optimal for general population
100-129 Near optimal for general population
130-159 Borderline high
160-189 High
>=190 Very high Performing Location [facility] - [address] [facility] [address]
--- OUTSIDE RECORDS SUMMARY | 2024-05-24 13:52 | External Medical Summary | Summary of Care ---
Author Name Unknown Organization [facility] Address [address] [place] [address] Phone [phone] Care Team Providers Care Cook Helper Juice Name Role Phone Finesse Hemphill PA-C Primary Care Provide r Reason for Visit * Reason Onset Date Comments Appointment 04/25/202404/25 LM/Pre op Encounter Details Date Type Department Care Team ([facility] Contact Info) Description 04/25/2024 Telephone Family Practice [facility] [place] [address] [place] [address] Finesse Hemphill PA-C [address] [place] [address] Appointment (04/25 LM/Pre op) Allergies Active Allergy Reactions Criticality Noted Date Comments Gabapentin 09/28/2022 Bruising Tessalon Perles 06/18/2013 PER PATIENT--RASH --ITCHY ALL OVER. 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 Use [...] MG Sublingual Tablet Sublingual (Nitrostat)Indicati ons:Atherosclerosis of [place] coronary artery of [place] heart without angina pectoris Place 1 Tablet under the tongue every 5 minutes as needed for Pain, Chest. 25 Tablet 1 02/23/20 24 Active Clopidogrel Bisulfate 75 MG Oral Tablet (pLAVix)Indications :Coronary atherosclerosis of [place] coronary artery TAKE 1 TABLET BY MOUTH [...] as of this encounter (statuses as of 04/25/2024) Active Problems Problem Noted Date Diagnosed Date Recurrent major depressive disorder, in partial remission 07/26/2022 Coronary artery disease invo lving [place] coronary artery of [place] heart without angina pectoris 07/26/2022 Atherosclerosis of coronary artery bypass graft(s) without angina pectoris 09/17/2020 S/P ORIF (open reduction internal fixation) frac ture 09/17/2020 COPD, group A, by GOLD 2017 [...] as of this encounter (statuses as of 04/25/2024) Resolved Problems Problem Noted Date Diagnosed Date Resolved Date Idiopathic aseptic necrosis of right femur 02/18/2021 07/26/2022 Alcohol abuse with intoxication, unspecified 06/02/2021 Morbid (severe) obesity due to excess calories 09/17/2020 02/18/2021 Collapse of thoracic vertebr a with routine healing 09/17/2020 03/29/2022 Overview (03/29/2022): history Updated to be more specific. Other hyperlipidemia 09/17/2020 08/2 022 Bimalleolar ankle fracture, right, open type I or II, with routine healing, subsequent encounter 08/03/2020 06/02/2021 Nontoxic single thyroid nodule 06/21/2019 07/26/2022 Prediabetes 02/26/2019 03/21/2024 Avascular necrosis 11/01/2018 9 Bilateral sacroiliitis 08/01/201810/05 Gastroesophageal reflux dise ase with esophagitis 02/19/2018 06/02/2021 Acute cystitis with hematuria 12/05/2017 03/23/2018 Dyslipidemia 08/22/2017 05/16/2023 Sprain of ligaments of thoracic spine 06/28/2017 08/22/2017 Atherosclerosis of [place] co ronary artery of [place] heart without angina pectoris 03/17/201712/2020 Overview (03/15/2021): More specific code in use. Recurrent major depressive d isorder, in partial remission 03/17/2017 06/02/2021 Claudication in peripheral vascular disease 03/17/2017 07/26/2022 Back pain, lumbosacral 02/20/201711/29 Multiple lung nodules 07/13/20162017 Depression with anxiety 10/08/201503/08 Dependent edema 2015 03/17/2017 Atherosclerosis of [place] co ronary artery without angina pectoris 08/10/2015 [...] as of this encounter (statuses as of 04/25/2024) Immunizations Name Administration Dates Next Due PPD [...] Tobacco: Every Day Cigarettes 0.5 62 Started: 1961 Smokeless Tobacco: Never Comments:Up to 1/2 ppd [...] 01/18/2024 Does the household have a re lar source of income? (Household - for ages [...] encounter Miscellaneous Notes * Telephone Encounter - Luz Key OSA - 04/25/2024 2:57 PM EST LMOM to reschedule * Telephone Encounter - Krystal Tello OSA - 04/25/2024 2:14 PM EST Pt. Had an appt. Schedule for 04/26 with Eduardo No for a complete physical that she had cancelled but would now like to reschedule as she has an upcoming surgery and needs the complete physical. However, I am unable to schedule her for appt. As she has already been seen this year for complete physical. Please call pt. Back as soon as possible to reschedule. documented in this encounter Plan of Treatment Upcoming Encounters Date Type Department Care Team (Late st Contact Info) Description 05/17/2024 10:00 AM EST Appointment Radiology, [facility] [address] [place] [address] 06/04/2024 8:00 AM EST Telemedicine Cardiology [facility], [place] [address] [place] [address] [place] [address], Pharmacist Cardiology [facility] [address] [place] [address] 08/23/2024 10:30 AM EDT Office Visit [place] [address] [place] [address] Lucio Em DO [address] [place] [address] [place] [address] 09/13/2024 11:40 AM EDT Office Visit Family Practice [address] [place] [address] Eduardo No MD [address] [place] [address] 10/03/2024 9:30 AM EDT Office Visit Cardiology [address] [address] Lucio Em DO [address] [facility] [place] [address] 01/23/2025 10:00 AM EDT Nurse Only Ancillary [address] [place] [address] Ana Luisa, Nurse Annual Wellness [place] [address] [place] [address] Scheduled Procedures Name Priority Associated Diagnoses Date/Ti me COLONOSCOPY FLEXIBLE PROXIMA L DIAGNOSTIC Recall History of colonic polyps Health Maintenance Due Date Last Done Comments Cologuard 10/07/1996 Sigmoidoscopy 10/07/1996 Fecal Occult Blood Test 12/19/2014 12/19/2013 DISCUSS TOBACCO CESSATION (REFER TO SMARTSET #2206) 12/25/2021 12/25/2020, 12/31/2015, 12/24/2012 Mammogram 09/29/2023 09/28/2022, 04/0 08/2021, 05/29/2019, Additional history exists COVID-19 Vaccine ( season) 2024 GFR 10/26/2024 10/27/2023, 07/07, 12/23/2021, [...] DXA Scan 10/05/2030 10/06/2023, 08/02/2016 Pneumococcal Vaccine: 65+ Years Completed 10/17/2018, 02/20/2017, 03/19/2012 Alpha-1 Antitrypsin Completed 02/13/2019 Zoster Vaccines Completed 05/16/2019, 03/07/2019 Lung Cancer Screening Completed 05/16/2023 , 02/13/2023, 02/09/2022, Additional history exists Influenza Vaccine (FLU shot) Completed 01/18/2024, 01/18/2024, [...] Not on filedocumented as of this encounter Advance Directives Documents on File Type Date Recorded Patient Rn Medication Expl anation DENISE 06/02/2020 DENISE LARA ORDERS FOR LIFE-SUSTAINING TREATMENT Care Teams Cook Helper Juice Relationship Specialty Start Date End Date Finesse Hemphill PA-C [facility] [place] [address] PCP - General Physician Visual Merchandising Director 03/31/23 documented as of this encounter
--- OUTSIDE RECORDS SUMMARY | 2024-05-24 13:52 | External Medical Summary | Summary of Care ---
Author Name Unknown Organization [facility] Address [address] [place] [address] Phone [phone] Care Team Providers Care Stack Clerk Name Role Phone Finesse Hemphill PA-C Primary Care Provide r Reason for Visit * Reason Onset Date Comments Surgery 04/26/2024 Encounter Details Date Type Department Care Team ([facility] [address] [facility] Contact Info) Description 04/26/2024 Telephone Family Practice [facility] [place] [address] [facility] [place] [address] Chuckie Pandey PA-C [address] [place] [address] Surgery Allergies Active Allergy Reactions Criticality Noted Date Comments Gabapentin 09/28/2022 Bruising Tessalon Perles 06/18/2013 PER PATIENT--RASH --ITCHY ALL OVER. 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 Use [...] MG Sublingual Tablet Sublingual (Nitrostat)Indicati ons:Atherosclerosis of [place] coronary artery of [place] heart without angina pectoris Place 1 Tablet under the tongue every 5 minutes as needed for Pain, Chest. 25 Tablet 1 02/23/20 24 Active Clopidogrel Bisulfate 75 MG Oral Tablet (pLAVix)Indications :Coronary atherosclerosis of [place] coronary artery TAKE 1 TABLET BY MOUTH EVERY DAY MORNING 90 Tablet 03/05/20 24 Active Famotidine 20 MG Oral Tablet (Pepcid)Indications :Dyslipidemia TAKE 1 TABLET BY MOUTH EVERY DAY 90 Tablet 1 03/02/20 Active Losartan Potassium 25 MG Oral Tablet (Cozaar) TAKE 1 TABLET BY MOUTH EVERY DAY 90 Tablet 1 03/02/20 Active Rosuvastatin Calcium 40 MG Oral Tablet (Crestor)Indication s:Dyslipidemia TAKE 1 TABLET BY MOUTH AT BEDTIME 90 Tablet 03/05/20 24 Active documented as of this encounter (statuses as of 04/26/2024) Active Problems Problem Noted Date Diagnosed Date Recurrent major depressive disorder, in partial remission 07/26/2022 Coronary artery disease invo lving [place] coronary artery of [place] heart without angina pectoris 07/26/2022 Atherosclerosis of [...] as of this encounter (statuses as of 04/26/2024) Resolved Problems Problem Noted Date Diagnosed Date Resolved Date Idiopathic aseptic necrosis of right femur 02/18/2021 07/26/2022 Alcohol abuse with intoxication, unspecified 06/02/2021 Morbid (severe) obesity due to excess calories 09/17/2020 02/18/2021 Collapse of thoracic vertebr a with routine healing 09/17/2020 03/29/2022 Overview (03/29/2022): history Updated to be more specific. Other hyperlipidemia 09/17/2020 08/18/2 022 Bimalleolar ankle fracture, right, open type I or II, with routine healing, subsequent encounter 08/03/2020 06/02/2021 Nontoxic single thyroid nodule 06/21/2019 07/26/2022 Prediabetes 02/26/2019 03/21/2024 Avascular necrosis 11/01/2018 9 Bilateral sacroiliitis 08/01/201810/05 Gastroesophageal reflux dise ase with esophagitis 02/19/2018 06/02/2021 Acute cystitis with hematuria 12/05/2017 03/23/2018 Dyslipidemia 08/22/2017 05/16/2023 Sprain of ligaments of thoracic spine 06/28/2017 08/22/2017 Atherosclerosis of [place] co ronary artery of [place] heart without angina pectoris 03/17/201712/2020 Overview (03/15/2021): More specific code in use. Recurrent major depressive d isorder, in partial remission 03/17/2017 06/02/2021 Claudication in peripheral vascular disease 03/17/2017 07/26/2022 Back pain, lumbosacral 02/20/201711/29 Multiple lung nodules 07/13/20162017 Depression with anxiety 10/08/201503/08 Dependent edema 2015 03/17/2017 Atherosclerosis of [place] co ronary artery without angina pectoris 08/10/2015 [...] as of this encounter (statuses as of 04/26/2024) Immunizations Name Administration Dates Next Due PPD [...] No 01/18/2024 Does the household have a [facility] source [facility] income? (Household - for ages [...] encounter Miscellaneous Notes * Telephone Encounter - Bharti Agosto CCMA - 04/26/2024 12:01 PM EST Faxed over information to [facility] [phone]. * Telephone Encounter - Chuckie Pandey PA-C - 04/26/2024 10:56 AM EST Preoperative clearance note completed. Office note can be faxed to [facility]. Fax #: [phone]. Thank you. documented in this encounter Plan of Treatment Upcoming Encounters Date Type Department Care Team (Late st Contact Info) Description 05/17/2024 10:00 AM EST Appointment Radiology, [facility] [address] [facility] [place] [address] 06/04/2024 8:00 AM EST Telemedicine Cardiology [facility], [place] [address] [place] [facility] [place] [address] [place] [address], Pharmacist Cardiology [facility] [address] [place] [address] 08/23/2024 10:30 AM EDT Office Visit Cardiology, [address] [place] [address] Lucio Em DO [address] [place], [place] [address] [address] 09/13/2024 11:40 AM EDT Office Visit Family Practice [address] [place] [address] Eduardo No MD [address] [place] [address] 10/03/2024 9:30 AM EDT Office Visit Cardiology, [address] [place] [address] Lucio Em DO [address] [place], [place] [address] [address] 01/23/2025 10:00 AM EDT Nurse Only Ancillary [address] [place] [address] Ana Luisa, Nurse Annual Wellness [facility] [address] [place] [address] Scheduled Procedures Name Priority Associated Diagnoses Date/Ti me COLONOSCOPY FLEXIBLE PROXIMA L DIAGNOSTIC Recall History of colonic polyps Health Maintenance Due Date Last Done Comments Cologuard 10/07/1996 Sigmoidoscopy 10/07/1996 Fecal Occult Blood Test 12/19/2014 12/19/2013 DISCUSS TOBACCO CESSATION (REFER TO SMARTSET #3291) 12/25/2021 12/25/2020, 12/31/2015, 12/24/2012 Mammogram 09/29/2023 09/28/2022, [...] Documents on File Type Date Recorded Patient Song Plugger Expl anation DENISE 06/02/2020 DENISE LARA ORDERS FOR LIFE-SUSTAINING TREATMENT Care Teams Stack Clerk Relationship Specialty Start Date End Date Finesse Hemphill PA-C [address] [facility] [place] [address] PCP - General Physician Marine Farmer 03/31/23 documented as of this encounter
--- OUTSIDE RECORDS SUMMARY | 2024-05-24 13:52 | External Medical Summary | Summary of Care ---
Author Name Unknown Organization [facility] Address [address] [place] [address] Phone [phone] Care Team Providers Care Knuckle Bender Name Role Phone Finesse Hemphill PA-C Primary Care Provide r Reason for Visit * Reason Onset Date Comments Appointment 04/25/202404/25 LM/Pre op Encounter Details Date Type Department Care Team ([facility] Contact Info) Description 04/25/2024 Telephone Family Practice [facility] [place] [address] [place] [address] Finesse Hemphill PA-C [address] [place] [address] Appointment (04/25 LM/Pre op) Allergies Active Allergy Reactions Criticality Noted Date Comments Gabapentin 09/28/2022 Bruising Tessalon Perles 06/18/2013 PER PATIENT--RASH --ITCHY ALL OVER. 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 Use [...] MG Sublingual Tablet Sublingual (Nitrostat)Indicati ons:Atherosclerosis of [place] coronary artery of [place] heart without angina pectoris Place 1 Tablet under the tongue every 5 minutes as needed for Pain, Chest. 25 Tablet 1 02/23/20 24 Active Clopidogrel Bisulfate 75 MG Oral Tablet (pLAVix)Indications :Coronary atherosclerosis of [place] coronary artery TAKE 1 TABLET BY MOUTH [...] remission 07/26/2022 Coronary artery disease invo lving [place] coronary artery of [place] heart without angina pectoris 07/26/2022 Atherosclerosis of [...] of thoracic spine 06/28/2017 08/22/2017 Atherosclerosis of [place] co ronary artery of [place] heart without angina pectoris 03/17/201712/2020 Overview (03/15/2021): More specific code in use. Recurrent major depressive d isorder, in partial remission 03/17/2017 06/02/2021 Claudication in peripheral vascular disease 03/17/2017 07/26/2022 Back pain, lumbosacral 02/20/201711/29 Multiple lung nodules 07/13/20162017 Depression with anxiety 10/08/201503/08 Dependent edema 2015 03/17/2017 Atherosclerosis of [place] co ronary artery without angina pectoris 08/10/2015 [...] LMOM to reschedule * Telephone Encounter - Kyrstal Tello OSA - 04/25/2024 2:14 PM EST [...] Description 05/17/2024 10:00 AM EST Appointment Radiology, [facility] [address] [place] [address] 06/04/2024 8:00 AM EST Telemedicine Cardiology [facility], [place] [address] [place] [address] [place] [address], Pharmacist Cardiology [facility] [address] [place] [address] 08/23/2024 10:30 AM EDT Office Visit [place] [address] [place] [address] Lucio Em DO [address] [place] [address] [place] [address] 09/13/2024 11:40 AM EDT Office Visit Family Practice [address] [place] [address] Eduardo No MD [address] [place] [address] 10/03/2024 9:30 AM EDT Office Visit Cardiology [address] [address] Lucio Em DO [address] [facility] [place] [address] 01/23/2025 10:00 AM EDT Nurse Only Ancillary [address] [place] [address] Ana Luisa, Nurse Annual Wellness [place] [address] [place] [address] Scheduled Procedures Name Priority Associated Diagnoses Date/Ti me COLONOSCOPY FLEXIBLE PROXIMA L DIAGNOSTIC Recall History of colonic polyps Health Maintenance Due Date Last Done Comments Cologuard 10/07/1996 Sigmoidoscopy 10/07/1996 Fecal Occult Blood Test 12/19/2014 12/19/2013 DISCUSS TOBACCO CESSATION (REFER TO SMARTSET #8589) 12/25/2021 12/25/2020, 12/31/2015, 12/24/2012 Mammogram 09/29/2023 09/28/2022, [...] Documents on File Type Date Recorded Patient Chief Nurse Expl anation DENISE 06/02/2020 DENISE LARA ORDERS FOR LIFE-SUSTAINING TREATMENT Care Teams Knuckle Bender Relationship Specialty Start Date End Date Finesse Hemphill PA-C [facility]8 [facility] [place] [address] PCP - General Physician Sap Integration Architect 03/31/23 documented as of this encounter
--- OUTSIDE RECORDS SUMMARY | 2024-05-24 13:52 | External Medical Summary | Summary of Care ---
Author Name Unknown Organization [facility] Address [address] [place] [address] Phone [phone] Care Team Providers Care Barrel Inspector Name Role Phone Finesse Hemphill PA-C Primary Care Provide r Reason for Visit * Reason Comments pre-op exam Back surgery at [facility] shantanu Schwaby May 24 Encounter Details Date Type Department Care Team (Latest Contact Info) Description 04/26/2024 10:20 AM EST Office Visit Family [facility] Rey Sánchez [address] [place] [address] Chuckie Pandey PA-C [address] [place] [address] Preoperative clearance*; Dyslipidemia, goal LDL below 70; HTN, goal below 130/80; Atherosclerosis of coronary artery bypass graft of [place] heart without angina pectoris; PVD (peripheral vascular disease) ([facility]); COPD, group A, by GOLD 2017 classification ([facility]); Degeneration of intervertebral disc of lumbosacral region with discogenic back pain and lower extremity pain Allergies Active Allergy Reactions Criticality Noted Date Comments Gabapentin 09/28/2022 Bruising Tessalon Perles 06/18/2013 PER PATIENT--RASH --ITCHY ALL OVER. 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 Use [...] Base) MCG/ACT Inhalation Aerosol SolutionIndications :COPD, mild ([facility]) Inhale 2 Puffs by mouth 4 times [...] MG Sublingual Tablet Sublingual (Nitrostat)Indicati ons:Atherosclerosis of [place] coronary artery of te[place] heart without angina pectoris Place 1 Tablet under the tongue every 5 minutes as needed for Pain, Chest. 25 Tablet 1 02/23/20 24 Active Clopidogrel Bisulfate 75 MG Oral Tablet (pLAVix)Indications :Coronary atherosclerosis of [place] coronary artery TAKE 1 TABLET BY MOUTH [...] remission 07/26/2022 Coronary artery disease invo lving te[place] coronary artery of [place] heart without angina pectoris 07/26/2022 Atherosclerosis of [...] 02/18/2021 07/26/2022 Alcohol abuse with intoxication, unspecified 1 06/02/2021 Morbid (severe) obesity due to excess calories 09/17/2020 02/18/2021 Collapse of thoracic vertebr a with routine healing 09/17/2020 03/29/2022 Overview (03/29/2022): history Updated to be more specific. Other hyperlipidemia 09/17/2020 022 Bimalleolar ankle fracture, right, open type I or II, with routine healing, subsequent encounter 08/03/2020 06/02/2021 Nontoxic single thyroid nodule 06/21/2019 07/26/2022 Prediabetes 02/26/2019 03/21/2024 Avascular necrosis 11/01/2018 9 Bilateral sacroiliitis 08/01/201810/05 Gastroesophageal reflux dise ase with esophagitis 02/19/2018 06/02/2021 Acute cystitis with hematuria 12/05/2017 03/23/2018 Dyslipidemia 08/22/2017 05/16/2023 Sprain of ligaments of thoracic spine 06/28/2017 08/22/2017 Atherosclerosis of [place] co ronary artery of [place] heart without angina pectoris 03/17/201712/2020 Overview (03/15/2021): More specific code in use. Recurrent major depressive d isorder, in partial remission 03/17/2017 06/02/2021 Claudication in peripheral vascular disease 03/17/2017 07/26/2022 Back pain, lumbosacral 02/20/201711/29 Multiple lung nodules 07/13/20162017 Depression with anxiety 10/08/201503/08 Dependent edema 2015 03/17/2017 Atherosclerosis of [place] co ronary artery without angina pectoris 08/10/2015 03/17/2017 Breast cancer 06/10/2013 05/19/2015 COPD, mild 06/10/2013 09/29/2016 Peripheral vascular disease 02/02/2011 03/17/2017 CORONARY ATHEROSCLEROSIS VESSEL NOS 12/27/2007 08/10/2015 Asthma in COPD 12/27/2007 03/02/2015 Dyslipidemia, goal to be determined 12/27/2007 04/21/2009 Overview (04/21/2009): Per Lipid Taxonomy. 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, UNSPECIFIED SITE 12/27/2007 03/02/2015 ADJ [...] 0.5 62 Started: 1961 Smokeless Tobacco: Never Tobacco [...] on file documented as of this encounter Last Filed Vital Signs Vital Sign Reading Time Taken Comments Blood Pressure 120/60 04/26/2024 10:29 AM EST Pulse 82 04/26/2024 10:29 AM EST Temperature 36.6 C (97.8 F) 04/26/2024 10:[address] Respiratory Rate 20 04/26/2024 10:29 AM EST Oxygen Saturation 92% 04/26/2024 10:29 AM EST Inhaled Oxygen Concentration - - Weight 48.3 kg (106 lb 6.4 oz) 04/26/2024 10:29 AM EST Height 154.9 cm (5' 1") 04/26/2024 10:29 AM EST Body Mass Index 20.1 04/26/2024 10:29 AM EST documented in this encounter Nursing Notes * Bharti Agosto CCMA - 04/26/2024 10:28 AM EST Chief Complaint Patient presents with pre-op exam Back surgery at [facility] May 24 documented in this encounter Plan of Treatment Upcoming Encounters Date Type Department Care Team (Late st Contact Info) Description 05/17/2024 10:00 AM EST Appointment Radiology, [address] [place] [address] 06/04/2024 8:00 AM EST Telemedicine Cardiology [facility], [place] [address] [place] [address] [place] [address], Pharmacist Cardiology [place] [address] [place] [address] 08/23/2024 10:30 AM EDT Office Visit Megha [address] [place] [address] Lucio Em DO [address] [place] [address] [place] [address] 09/13/2024 11:40 AM EDT Office Visit Family Practice [address] Rey Sánchez [address] [place] [address] Eduardo No MD [address] [place] [address] 10/03/2024 9:30 AM EDT Office Visit Beti [address] [address] Lucio Em DO [address] [place], [place] [address], [place] [address] 01/23/2025 10:00 AM EDT Nurse Only Ancillary [address], Rey [address] [place] [address] [place], Nurse Annual Wellness [place] [address] [place] [address] Scheduled Procedures Name Priority Associated Diagnoses Date/Ti [...] as of this encounter Visit Diagnoses Diagnosis Preoperative clearance- Primary Preoperative examination, unspecified Dyslipidemia, goal LDL below 70 Other and unspecified hyperlipidemia HTN, goal below 130/80 Unspecified essential hypertension Atherosclerosis of coronary artery bypass graft of [place] heart without angina pectoris PVD (peripheral vascular disease) (HCC) Peripheral vascular disease, unspecified COPD, group A, by GOLD 2017 classification (HCC) Degeneration of intervertebral disc of lumbosacral region with discogenic back pain and lower extremity pain documented in this encounter Advance Directives Documents on File Type Date Recorded Patient Bone Char Kiln Operator Expl anation DENISE 06/02/2020 DENISE LARA ORDERS FOR LIFE-SUSTAINING TREATMENT Care Teams Barrel Inspector Relationship Specialty Start Date End Date Finesse Hemphill PA-C [address] [facility] [place] [address] PCP - General Physician Water Treatment Operator 03/31/23 documented as of this encounter
--- OUTSIDE RECORDS SUMMARY | 2024-05-24 13:52 | External Medical Summary | Summary of Care ---
Author Name Unknown Organization [facility] Address [address] [place] [address] Phone [phone] Care Team Providers Care Ironer Or Presser Name Role Phone Finesse Hemphill PA-C Primary Care Provide r Reason for Referral * Precert (Within 10 days (routine)) - Authorized Specialty Diagnoses / Procedures Referred By Contac t Referred To Contact Radiology Diagnoses Nicotine dependence, cigarettes, uncomplicated Procedures CT CHEST LOW DOSE SCAN LUNG CANCER SCREEN 1 YEAR FOLLOW UP Finesse Hemphill PA-C [address] [place] [address] Phone: tel: fax: Referral ID Status Reason Start Date Expiration Date V isits Requested Visits Authorized [id number] Authorized 05/17/2024 999 [id number] Reason for Visit * Precert (Within 10 days (routine)) - Authorized Specialty Diagnoses / Procedures Referred By Jens fournier Referred To Contact Radiology Diagnoses Nicotine dependence, cigarettes, uncomplicated Procedures CT CHEST LOW DOSE SCAN LUNG CANCER SCREEN 1 YEAR FOLLOW UP Finesse Hemphill PA-C [address] [place] [address] Phone: tel: fax: Referral ID Status Reason Start Date Expiration Date V isits Requested Visits Authorized [id number] Authorized 05/17/2024 999 [id number] Encounter Details Date Type Department Care Team (Latest Contact Info) Description 05/17/2024 10:00 AM EST - 05/17/2024 11:59 PM EST Hospital Encounter Radiology, [address] [place] [id number] Arrived Discharge Disposition: Home - Self Care Allergies Active Allergy Reactions Criticality Noted Date Comments Gabapentin 09/28/2022 Bruising Radhasalon Perles 06/18/2013 PER PATIENT--RASH --ITCHY ALL OVER. 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 Use [...] MG Sublingual Tablet Sublingual (Nitrostat)Indicati ons:Atherosclerosis of [place] coronary artery of [place] heart without angina pectoris Place 1 Tablet under the tongue every 5 minutes as needed for Pain, Chest. 25 Tablet 1 02/23/20 24 Active Clopidogrel Bisulfate 75 MG Oral Tablet (pLAVix)Indications :Coronary atherosclerosis of [place] coronary artery TAKE 1 TABLET BY MOUTH [...] as of this encounter (statuses as of 05/18/2024) Active Problems Problem Noted Date Diagnosed Date Recurrent major depressive disorder, in partial remission 07/26/2022 Coronary artery disease invo lving [place] coronary artery of [place] heart without angina pectoris 07/26/2022 Atherosclerosis of [...] as of this encounter (statuses as of 05/18/2024) Resolved Problems Problem Noted Date Diagnosed Date [...] of thoracic spine 06/28/2017 08/22/2017 Atherosclerosis of [place] co ronary artery of [place] heart without angina pectoris 03/17/201712/2020 Overview (03/15/2021): More specific code in use. Recurrent major depressive d isorder, in partial remission 03/17/2017 06/02/2021 Claudication in peripheral vascular disease 03/17/2017 07/26/2022 Back pain, lumbosacral 02/20/201711/29 Multiple lung nodules 07/13/20162017 Depression with anxiety 10/08/201503/08 Dependent edema 2015 03/17/2017 Atherosclerosis of [place] co ronary artery without angina pectoris 08/10/2015 [...] as of this encounter (statuses as of 05/18/2024) Immunizations Name Administration Dates Next Due PPD [...] on file documented as of this encounter Plan of Treatment Upcoming Encounters Date Type Department Care Team (Late st Contact Info) Description 06/04/2024 8:00 AM EST Telemedicine Cardiology [facility] [place] [address] [place] [address] [place] [address], Pharmacist Cardiology [address] [place] [address] 08/23/2024 10:30 AM EDT Office Visit Cardiology[facility]ala [address] [place] [address] Lucio Em DO [address] [place] [address] 09/13/2024 11:40 AM EDT Office Visit Family Practice [address] [place] [address] Eduardo No MD [address] [place] [address] 10/03/2024 9:30 AM EDT Office Visit Bala Bang [address] [place] [address] Lucio Em DO [address] [place] [address] 01/23/2025 10:00 AM EDT Nurse Only Ancillary [address] [place] [address] [place], Nurse Annual Wellness [address] [place] [address] Pending Results Name Type Priority Associated Diagnoses Date /Time CT CHEST LOW DOSE SCAN LUNG CANCER SCREEN 1 YEAR FOLLOW UP Medical Imaging Routine Nicotine dependence, cigarettes, uncomplicated 05/17/2024 10:46 AM EST Scheduled Orders Name Type Priority Associated Diagnoses Orde r Schedule CT CHEST LOW DOSE SCAN LUNG CANCER SCREEN 1 YEAR FOLLOW UP Medical Imaging Routine Nicotine dependence, cigarettes, uncomplicated 1 Occurrences starting 05/17/2024 until 05/17/2024 Scheduled Procedures Name Priority Associated Diagnoses Date/Ti [...] as of this encounter Visit Diagnoses Diagnosis Nicotine dependence, cigarettes, uncomplicated documented in this encounter Advance Directives Documents on File Type Date Recorded Patient Air And Water Tester Expl anation DENISE 06/02/2020 DENISE LARA ORDERS FOR LIFE-SUSTAINING TREATMENT Care Teams Ironer Or Presser Relationship Specialty Start Date End Date Finesse Hemphill PA-C [address] [facility] [place] [address] PCP - General Physician Big Data Platform Architect 03/31/23 documented as of this encounter
--- OUTSIDE RECORDS SUMMARY | 2024-05-24 13:52 | External Medical Summary | Summary of Care ---
Author Name Unknown Organization [facility] Address [address] [place] [address] Phone [phone] Care Team Providers Care Customs Verifier Name Role Phone Finesse Hemphill PA-C Primary Care Provide r Reason for Visit * Reason Comments pre-op exam Back surgery at [facility] shantanu Schwaby May 24 Encounter Details Date Type Department Care Team (Latest Contact Info) Description 04/26/2024 10:20 AM EST Office Visit Family [facility] Rey Sánchez [address] [place] [address] Chuckie Pandey PA-C [address] [place] [address] Preoperative clearance*; Dyslipidemia, goal LDL below 70; HTN, goal below 130/80; Atherosclerosis of coronary artery bypass graft of [place] heart without angina pectoris; PVD (peripheral vascular disease) ([facility]); COPD, group A, by GOLD 2017 classification ([facility]); Degeneration of intervertebral disc of lumbosacral region with discogenic back pain and lower extremity pain Allergies Active Allergy Reactions Criticality Noted Date Comments Gabapentin 09/28/2022 Bruising Tessalon Perles 06/18/2013 PER PATIENT--RASH --ITCHY ALL OVER. 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 [...] Base) MCG/ACT Inhalation Aerosol SolutionIndications :COPD, mild ([facility]) Inhale 2 Puffs by mouth 4 times [...] MG Sublingual Tablet Sublingual (Nitrostat)Indicati ons:Atherosclerosis of [place] coronary artery of [place] heart without angina pectoris Place 1 Tablet under the tongue every 5 minutes as needed for Pain, Chest. 25 Tablet 1 02/23/20 24 Active Clopidogrel Bisulfate 75 MG Oral Tablet (pLAVix)Indications :Coronary atherosclerosis of [place] coronary artery TAKE 1 TABLET BY MOUTH [...] remission 07/26/2022 Coronary artery disease invo lving [place] coronary artery of [place] heart without angina pectoris 07/26/2022 Atherosclerosis of [...] of thoracic spine 06/28/2017 08/22/2017 Atherosclerosis of [place] co ronary artery of [place] heart without angina pectoris 03/17/201712/2020 Overview (03/15/2021): More specific code in use. Recurrent major depressive d isorder, in partial remission 03/17/2017 06/02/2021 Claudication in peripheral vascular disease 03/17/2017 07/26/2022 Back pain, lumbosacral 02/20/201711/29 Multiple lung nodules 07/13/20162017 Depression with anxiety 10/08/201503/08 Dependent edema 2015 03/17/2017 Atherosclerosis of [place] co ronary artery without angina pectoris 08/10/2015 03/17/2017 Breast cancer 06/10/2013 05/19/2015 COPD, mild 06/10/2013 09/29/2016 Peripheral vascular disease 02/02/2011 03/17/2017 CORONARY ATHEROSCLEROSIS VESSEL NOS 12/27/2007 08/10/2015 Asthma in COPD 12/27/2007 03/02/2015 Dyslipidemia, goal to be determined 12/27/2007 04/21/2009 Overview (04/21/2009): Per Lipid Taxonomy. GERD (gastroesophageal reflux disease) 12/27/2007 02/19/2018 ANOMALY OF THE PERIPHERAL AL SCULAR SYSTEM, UNSPECIFIED SITE 12/27/2007 03/02/2015 ADJ [...] presents with pre-op exam Back surgery at [facility] May 24 documented in this encounter Plan of Treatment Upcoming Encounters Date Type Department Care Team (Late st Contact Info) Description 05/17/2024 10:00 AM EST Appointment Radiology, [address] [place] [address] 06/04/2024 8:00 AM EST Telemedicine Cardiology [facility], [place] [address] [place] [address] [place] [address], Pharmacist Cardiology [place] [address] [place] [address] 08/23/2024 10:30 AM EDT Office Visit Megha Bang[address] [place] [address] Lucio Em DO [address] [place] [address] [place] [address] 09/13/2024 11:40 AM EDT Office Visit Family Practice [place] Rey Sánchez [address] [place] [address] Eduardo No MD [address] [place] [address] 10/03/2024 9:30 AM EDT Office Visit Beti [address] [address] Lucio Em DO [address] [place], [place] [address], [place] [address] 01/23/2025 10:00 AM EDT Nurse Only Ancillary [address], Rey [address] [place] [address] [place], Nurse Annual Wellness [place] [address] [place] [address] Scheduled Procedures Name Priority [...] Atherosclerosis of coronary artery bypass graft of [place] heart without angina pectoris PVD (peripheral vascular disease) (HCC) Peripheral vascular disease, unspecified COPD, group A, by GOLD 2017 classification (HCC) Degeneration of intervertebral disc of lumbosacral region with discogenic back pain and lower extremity pain documented in this encounter Advance Directives Documents on File Type Date Recorded Patient Cosmetics And Toiletries Salesperson Expl anation DENISE 06/02/2020 DENISE LARA ORDERS FOR LIFE-SUSTAINING TREATMENT Care Teams Customs Verifier Relationship Specialty Start Date End Date Finesse Hemphill PA-C [address] [facility] [place] [address] PCP - General Physician Charger Operator Helper 03/31/23 documented as of this encounter
--- OUTSIDE RECORDS SUMMARY | 2024-05-24 13:52 | External Medical Summary | Summary of Care ---
Author Name Unknown Organization [facility] Address [address] [place] [address] Phone [phone] Care Team Providers Care Fruit Farmer Name Role Phone Finesse Hemphill PA-C Primary Care Provide r Reason for Visit * Reason Onset Date Comments Surgery 04/26/2024 Encounter Details Date Type Department Care Team ([facility] Contact Info) Description 04/26/2024 Telephone Family Practice [facility], [place] [address] [place] [address] Chuckie Pandey PA-C [address] [place] [address] Surgery Allergies Active Allergy Reactions Criticality Noted Date Comments Gabapentin 09/28/2022 Bruising Tessalon Perles 06/18/2013 PER PATIENT--RASH --ITCHY ALL OVER. 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 Use [...] MG Sublingual Tablet Sublingual (Nitrostat)Indicati ons:Atherosclerosis of [place] of [place] coronary artery of [place] heart without angina pectoris Place 1 Tablet under the tongue every 5 minutes as needed for Pain, Chest. 25 Tablet 1 02/23/20 24 Active Clopidogrel Bisulfate 75 MG Oral Tablet (pLAVix)Indications :Coronary atherosclerosis of [place] coronary artery TAKE 1 TABLET BY MOUTH [...] remission 07/26/2022 Coronary artery disease invo lving [place] coronary artery of [place] heart without angina pectoris 07/26/2022 Atherosclerosis of [...] of thoracic spine 06/28/2017 08/22/2017 Atherosclerosis of [place] co ronary artery of [place] heart without angina pectoris 03/17/201712/2020 Overview (03/15/2021): More specific code in use. Recurrent major depressive d isorder, in partial remission 03/17/2017 06/02/2021 Claudication in peripheral vascular disease 03/17/2017 07/26/2022 Back pain, lumbosacral 02/20/201711/29 Multiple lung nodules 07/13/20162017 Depression with anxiety 10/08/201503/08 Dependent edema 2015 03/17/2017 Atherosclerosis of [place] co ronary artery without angina pectoris 08/10/2015 [...] No 01/18/2024 Does the household have a [facility] source of income? (Household - for [...] encounter Miscellaneous Notes * Telephone Encounter - Chuckie Pandey PA-C - 04/26/2024 10:56 AM EST Preoperative clearance note completed. Office note can be faxed to [facility]. Fax #: [phone]. Thank you. documented in this encounter Plan of Treatment Upcoming Encounters Date Type Department Care Team (Late st Contact Info) Description 05/17/2024 10:00 AM EST Appointment Radiology, [address] [place] [address] 06/04/2024 8:00 AM EST Telemedicine Cardiology [address] [address] [place], Pharmacist Cardiology [facility] [address] [facility] [place] [address] 08/23/2024 10:30 AM EDT Office Visit [place] [address] [place] [address] Lucio Em, DO [address] [facility] [address] 09/13/2024 11:40 AM EDT Office Visit Family Practice [place] Rey Sánchez [address] [place] [address] Eduardo No MD [address] [place] [address] 10/03/2024 9:30 AM EDT Office Visit [place]ha [place] [address] [place] [address] Lucio Em, DO [address] [facility] [place] [address] 01/23/2025 10:00 AM EDT Nurse Only Ancillary [place] [address] [place] [address] [place], Nurse Annual Wellness [facility] [address] [place] [address] Scheduled Procedures Name Priority Associated Diagnoses Date/Ti me COLONOSCOPY FLEXIBLE PROXIMA L DIAGNOSTIC Recall History of colonic polyps Health Maintenance Due Date Last Done Comments Cologuard 10/07/1996 Sigmoidoscopy 10/07/1996 Fecal Occult Blood Test 12/19/2014 12/19/2013 DISCUSS TOBACCO CESSATION (REFER TO SMARTSET #3291) 12/25/2021 12/25/2020, 12/31/2015, 12/24/2012 Mammogram 09/29/2023 09/28/2022, 04/0 08/2021, 05/29/2019, Additional history exists COVID-19 Vaccine (1 - 2023- season) 2024 GFR 10/26/2024 10/27/2023, 07/07, 12/23/2021, [...] Documents on File Type Date Recorded Patient Psychometrist Expl anation POLST 06/02/2020 POLST PENNSYLVA MARCO ORDERS FOR LIFE-SUSTAINING TREATMENT Care Teams Fruit Farmer Relationship Specialty Start Date End Date Finesse Hemphill PA-C [address] [facility] [place] [id number] PCP - General Physician Geology Scientist 03/31/23 documented as of this encounter
--- OUTSIDE RECORDS SUMMARY | 2024-05-24 13:52 | External Medical Summary | Summary of Care ---
Author Name Unknown Organization [facility] Address [address] [place] [address] Phone [phone] Care Team Providers Care Adoption Specialist Name Role Phone JobyFniesse espino Cornelio ALVAREZ Primary Care Provide r Reason for Visit * Reason Comments Outpatient Testing Encounter Details Date Type Department Care Team ([facility] Contact Info) Description 05/17/2024 10:50 AM EST Laboratory Laboratory, [facility] [address] [place] [id number] [facility], Lab [address] [place], [place] [id number] Dyslipidemia, goal LDL below 70 Allergies Active Allergy Reactions Criticality Noted Date Comments Gabapentin 09/28/2022 Bruising Tessalon Perles 06/18/2013 PER PATIENT--RASH --ITCHY ALL OVER. documented as of this encounter (statuses as of 05/17/2024) Medications Nebulizers (NEBULIZER COMPRESSOR) MISCIndications:RIB PULLER D, mild (HCC) Inhale via nebulizer. Use [...] Base) MCG/ACT Inhalation Aerosol SolutionIndications :COPD, mild ([facility]) Inhale 2 Puffs by mouth 4 times [...] MG Sublingual Tablet Sublingual (Nitrostat)Indicati ons:Atherosclerosis of [place] coronary artery of [place] heart without angina pectoris Place 1 Tablet under the tongue every 5 minutes as needed for Pain, Chest. 25 Tablet 1 02/23/20 24 Active Clopidogrel Bisulfate 75 MG Oral Tablet (pLAVix)Indications :Coronary atherosclerosis of [place] coronary artery TAKE 1 TABLET BY MOUTH [...] as of this encounter (statuses as of 05/17/2024) Active Problems Problem Noted Date Diagnosed Date Recurrent major depressive disorder, in partial remission 07/26/2022 Coronary artery disease invo lving greenville coronary artery of [place] heart without angina pectoris 07/26/2022 Atherosclerosis of [...] as of this encounter (statuses as of 05/17/2024) Resolved Problems Problem Noted Date Diagnosed Date [...] of thoracic spine 06/28/2017 08/22/2017 Atherosclerosis of [place] co ronary artery of [place] heart without angina pectoris 03/17/201712/2020 Overview (03/15/2021): More specific code in use. Recurrent major depressive d isorder, in partial remission 03/17/2017 06/02/2021 Claudication in peripheral vascular disease 03/17/2017 07/26/2022 Back pain, lumbosacral 02/20/201711/29 Multiple lung nodules 07/13/20162017 Depression with anxiety 10/08/201503/08 Dependent edema 2015 03/17/2017 Atherosclerosis of [place] co ronary artery without angina pectoris 08/10/2015 [...] as of this encounter (statuses as of 05/17/2024) Immunizations Name Administration Dates Next Due PPD [...] Telemedicine Cardiology [facility], [place] [address] [place] [address] [facility], Pharmacist Cardiology [facility] [address] [place] [address] 08/23/2024 10:30 AM EDT Office Visit [place] [address] [address] Lucio Em DO [address] [place] [address] 09/13/2024 11:40 AM EDT Office Visit Family Practice [facility], [place] [id number] [address] Eduardo No MD [address] [place] [address] 10/03/2024 9:30 AM EDT Office Visit Cardiology, [place] [address] [place] [address] Lucio Em DO [address] [place] [address] 01/23/2025 10:00 AM EDT Nurse Only Ancillary [place] Gonz[address] [place] [address] [place], Nurse Annual Wellness [facility] [address] [place] [phone] Pending Results Name Type Priority Associated Diagnoses Date /Time LIPID PANEL WITH DIRECT LDL IF TG IS HIGH Lab Routine Dyslipidemia, goal LDL below 70 05/17/2024 10:54 AM EST Scheduled Procedures Name Priority Associated Diagnoses Date/Ti [...] as of this encounter Visit Diagnoses Diagnosis Dyslipidemia, goal LDL below 70 Other and unspecified hyperlipidemia documented in this encounter Advance Directives Documents on File Type Date Recorded Patient 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
[2024-05-24] MEDS ORDERED: PHENYLEPHRINE 100MCG/ML 5ML SYR ONE (13:56)
[2024-05-24] MEDS: ceFAZolin 330 MG/ML 1 GM VIAL ONE (14:27)
[2024-05-24] MEDS: FLOSEAL HEMOSTATIC MATRIX 10ML TOP ONE (14:27)
[2024-05-24] MEDS ORDERED: SUGAMMADEX SODIUM 200 MG/2 ML VIAL IV ONE (14:31)
--- NOTE | 2024-05-24 14:42 | Operative Report ---
Post Operative Report Pre & Post Diagnosis Operation Date: 05/24/24 11:35 Pre-Op Diagnosis: #1 lumbar spondylosis with radiculopathy. #2 lumbar spondylolisthesis L4-L5. Post-Op Diagnosis: Same I identified the patient and participated in the time-out.: Yes Procedure Operation Date: 05/24/24 11:35 Actual Procedures #1 removal of posterior instrumentation L5-S1. #2 exploration of fusion L5-S1. #3 lumbar decompression with bilateral medial facetectomies foraminotomies L3-L4 L4-L5. #4 posterior spinal fusion L4-5 and #5 placement posterior instrume ntation L4-S1. #6 interbody fusion L4-5. #7 placement of Spira 11 x 22 mm x 2 at L4-L5 per #8 placement locally harvested morselized autograft and posterior gutters were 9 placement infuse collagen sponge, with Koros in the posterior lateral gutters and os design interbody space. #10 placement of versa wrap of the exposed dura. Surgeon Nitish Morris, Sack Lifter Cornelio Silvestre Estimated Blood Loss 100 Findings Consistent with Post-Op Diagnosis Specimens None Indications This is a 73-year-old female known to me the presents above-mentioned diagnosis after failing course of nonoperative care is here for surgical invention. Description of Procedure Patient was met with identified informed consent obtained. Patient was then taken to the operative suite underwent intubation placed in a prone position on the Lawrence table atop the Rodríguez frame. All bony promises well-padded I suspected to ensure no external pressure placed upon the. This point lumbar spine was prepped and draped in normal sterile fashion. Sharp dissection with the assistance of Bovie cautery performed down to and exposing the lamina tra nsverse processes of L4 and the instrumentation L5-S1 bilaterally. I then proceeded with the hardware bilaterally explored the fusion mass noting to be mature and intact. And then performed a complete laminectomy of L4 including bilateral medial facetectomies and foraminotomies addressing all spinal stenosis. Then performed a partial laminectomy of L3 with bilateral male facetectomies to address all subarticular stenosis. Pedicle screws were then placed at L4 and S1 levels bilaterally with assistance of fluoroscopy in the process james contoured and placed. By way of transforaminal approach on the right a discectomy of L4-L5 was performed endplates guarded to subcortical bleeding bone and 11 x 22 mm Spira cage filled with os design bone graft tapped in position. Then proceeded to the left transforaminal region at L4-L5. Again discectomy performed endplates grade 2 subcortical bleeding bone and a second 1211 x 22 mm Spira cage filled with Oxyzyme tapped in position. The rods were then compressed locked in final position bilaterally. The transverse processes of L4-L5 burred to subcortical bleeding bone. Infuse collagen sponge combined with Koros and local autograft placed in the posterior lateral gutters. Versa wrap placed over the exposed dura. 15 round DELROY drain inserted. The incision was then closed with 1 Vicryl in the fascia 2-0 Vicryl subcutaneously and 4 Monocryl for final skin closure. Steri-Strips sterile dressing placed. Patient waken taken to PACU in stable condition. Please note spinal cord monitoring utilized after procedure no changes noted. Lastly Cornelio Kendrick was present for the entire surgery involved the patient positioning complex portion of the surgery and fashion closure. I attest to the content of the Intraoperative Record and any orders documented therein. Any exceptions are noted below.
[2024-05-24] MEDS: BACITRACIN OINT 14 GM TUBE ONE (14:51)
[2024-05-24] MEDS ORDERED: ESMOLOL HCL INJ 10 MG/ML 10ML VIAL IV ONE (15:01)
[2024-05-24] MEDS: fentaNYL citrate PF 100 MCG/2 ML VIAL IV PRN (15:05)
--- NOTE | 2024-05-24 15:24 | Fluoroscopy Report ---
FL lumbar spine 2-3V CLINICAL HISTORY: L5-S1 HARDWARE REMOVAL, L4-L5 DECOMPRESSION AND FUSION COMPARISON STUDY: 03/13/2015 FLUOROSCOPY TIME: 16.2 seconds FLUOROSCOPY IMAGES: 2 EXPOSURE DOSE: 8.45 mGy FINDINGS: Discectomy changes are noted at L4-L5 and L5-S1. Posterior interbody james and screw fusion e xtends from L4-S1 with interval removal of the L5 screws. IMPRESSION: Fluoroscopic assistance as above. ACT 112: Negative or not required by law. Electronically signed by: Gigi Priest M.D. 05/24/2024 2:49 PM
--- NOTE | 2024-05-24 15:51 | Anesthesiology Progress Note ---
Date of Service May 24, 2024 Anesthesia Post Procedure Vital Signs Vital Signs: Temp Pulse Pulse Resp BP Pulse Ox O2 Del Method 05/24/24 15:45 105 H 12 161/70 H 91 Room Air 05/24/24 15:35 100 H 13 164/79 H 99 Room Air 05/24/24 15:25 99 H 12 177/74 H 97 Room Air 05/24/24 15:15 96 H 16 183/78 H 100 Oxymask 05/24/24 15:05 87 15 157/90 H 98 Oxymask 05/24/24 14:57 36.1 C L 83 13 175/66 H 99 Oxymask 05/24/24 10:31 36.7 C 99 H 18 144/94 H 97 Room Air O2 Flow Rate 05/24/24 15:45 05/24/24 15:35 05/24/24 15:25 05/24/24 15:15 5 05/24/24 15:05 5 05/24/24 14:57 5 05/24/24 10:31 Pain Intensity Back: Pain Intensity: 7 Right Leg: Pain Intensity: 7 Transfer of Care Handoff Completed per policy Notes Mental Status: alert / awake / arousable Patient Amnestic to Procedure: Yes Nausea / Vomiting: adequately controlled Pain: adequately controlled Airway Patency, RR, SpO2: stable & adequate BP & HR: stable & adequate Hydration State: stable & adequate Anesthetic Complications: no major complications apparent and Pt Satisfied with anesthetic care
[2024-05-24] MEDS ORDERED: ALBUTEROL HFA 8 GM INHALER INH PRN (17:36)
[2024-05-24] MEDS ORDERED: METOCLOPRAMIDE HCL INJ 5 MG/ML 2 ML VIAL IV PRN (17:36)
[2024-05-24] MEDS ORDERED: hydrOXYzine HCl 25 MG TAB PO PRN (17:36)
[2024-05-24] MEDS ORDERED: FAMOTIDINE 20 MG TAB PO PRN (17:36)
[2024-05-24] MEDS ORDERED: PROMETHAZINE 12.5 MG/50.5 ML BAG IV PRN (17:36)
[2024-05-24] MEDS ORDERED: traMADol HCL 50 MG TABLET PO PRN (17:36)
[2024-05-24] MEDS ORDERED: bisacodyL 10 MG SUPP PR PRN (17:36)
[2024-05-24] MEDS ORDERED: MAGNESIUM HYDROXIDE SUSP 30 ML UDC PO PRN (17:36)
[2024-05-24] MEDS ORDERED: SOD PHOSPHATE/SOD BIPHOSPHATE ENEMA 132 ML BTL PR PRN (17:36)
[2024-05-24] MEDS ORDERED: DO NOT ADMINISTER PNEUMOCOCCAL VACCINE PRN (17:36)
[2024-05-24] MEDS ORDERED: HYDROmorphone INJ 1 MG/ML SYRINGE IV PRN (17:36)
[2024-05-24] MEDS ORDERED: ACETAMINOPHEN 1,000 MG/100 ML VIAL IV PRN (17:36)
[2024-05-24] MEDS ORDERED: LORazepam 0.5 MG TAB PO PRN (17:36)
[2024-05-24] MEDS ORDERED: DO NOT ADMINISTER FLU VACCINE PRN (17:36)
[2024-05-24] MEDS ORDERED: ONDANSETRON 4 MG OD TAB PO PRN (17:36)
[2024-05-24] MEDS ORDERED: LORazepam 2 MG/1 ML VIAL IV PRN (17:36)
[2024-05-24] MEDS ORDERED: diphenhydrAMINE Capsule 25 MG CAP PO PRN (17:36)
[2024-05-24] MEDS ORDERED: ALUMINUM/MAGNESIUM SUSP 30 ML UDC PO PRN (17:36)
--- NOTE | 2024-05-24 18:25 | Hospitalist Consultation ---
Date of Consultation May 24, 2024 Assessment & Plan (1) Lumbosacral spondylosis with radiculopathy: POD#0 Removal hardware L5-S1, decompression and fusion L4-L5 by Dr. 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 Noland. Thank you for this consultation. We will follow the patient with you during their hospital stay. You can reach a member of the [facility] Hospitalist Team 28/11 via the [facility] Hospitalist role in [employer]. Supervising Physician Co-Signing Physician Notes Pt seen and examined by me, care coordinated w/ Elias KAUR, pls refer to her note above for further detail. 73 yo F with hx of CAD s/p CABG x 2 in 2008, PVD s/p aortobifemoral bypass in 2000, chronic RLE occlusion, HTN, tobacco abuse, who is s/p removal of hardware L5-S1, decompression and fusion L4-L5 today by Dr. Morris. Postoperatively, the patient is doing well. She reports her pain is well-controlled. She denies any numbness, tingling, weakness of the lower extremities. No chest pain or shortness of breath. Denies abdominal pain and nausea. She is awake, alert, and answers appropriately. She is on 2L of suppl. O2, saturating 100%, will decrease oxygen to 1L and cont. to monitor. Pt has hx of COPD. Lung sounds diminished but w/o any wheezing or rhonchi. Heart sounds regular. Abdomen soft, nontender. SCDs applied, but no LE edema noted, Pt is moving extremities, no sensory loss noted. Pt reports she has not been taking ASA and plavix for 2 weeks prior to her surgery. She has hx of CAD, PVD, resume at surgeon's discretion. Monitor BP, check H&H tmrw AM. Cont. to closely monitor. MD Nuzhat History of Present Illness Reason for Consultation: postop medical management Requesting Physician: Dr. Morris Attending Physician: Nitish Morris DO History of Present Illness 73-year-old female with PMH CAD s/p CABG x 2 in 2008, PVD s/p aortobifemoral bypass in 2000, chronic RLE occlusion, HTN, tobacco abuse, and other problems listed below who is s/p removal of hardware L5-S1, decompression and fusion L4- L5 today by Dr. Morris. Postoperatively, the patient is doing well. She reports her pain is well-controlled. She denies any numbness, tingling, weakness of the lower extremities. No chest pain or shortness of breath. Denies abdominal pain and nausea. Allergies Allergy/AdvReac Type Severity Reaction Status Date / Time benzonatate Allergy Unknown Tessalon Verified 05/24/24 10:26 Perles- Rash gabapentin Allergy Bruising Verified 05/24/24 10:26 (per [facility] records) Home Medications Medication Instructions Recorded Confirmed Type acetaminophen 650 mg 650 mg PO DAILY 04/18/24 05/24/24 History tablet,extended release (Tylenol 8 Hour) albuterol sulfate 90 mcg/actuation 1 inh inhalation QID PRN sob 04/18/24 05/24/24 History aerosol inhaler aspirin 81 mg tablet,delayed 81 mg PO QAM 04/18/24 05/24/24 History release atenolol 25 mg tablet 25 mg PO QAM 04/18/24 05/24/24 History clopidogrel 75 mg tablet (Plavix) 75 mg PO QAM 04/18/24 05/24/24 History docusate sodium 100 mg capsule 100 mg PO DAILY 04/18/24 05/24/24 History ezetimibe 10 mg tablet (Zetia) 10 mg PO HS 04/18/24 05/24/24 History famotidine 20 mg tablet 20 mg PO DAILY 04/18/24 05/24/24 History losartan 25 mg tablet 25 mg PO DAILY 04/18/24 05/24/24 History melatonin 3 mg tablet 3 mg PO HS 04/18/24 05/24/24 History rosuvastatin 40 mg tablet 40 mg PO HS 04/18/24 05/24/24 History trazodone 50 mg tablet 75 mg PO HS 04/18/24 05/24/24 History duloxetine 60 mg capsule,delayed 60 mg PO DAILY 04/25/24 05/24/24 History release Patient History Medical History (Updated 05/24/24 @ 18:19 by VINCENT Guerrero) Carotid artery stenosis Carotid duplex 02/2023: < 50% B/L ICA stenosis CAD (coronary artery disease) CABG x2 (2008) Osteoarthritis Degenerative disc disease Chronic back pain Peripheral vascular disease S/P aortobifemoral bypass in [place] 07/25/2000 for occlusive disease with claudication. R-limb known to be occluded since at least 2017. History of COVID-2019- Asymptomatic Hx of breast cancer (2008) Left breast cancer- s/p surgical intervention + letrozole in the past LUE limb restriction Hyperlipidemia Hypertension Asthma Surgical History Hx of cardiac cath (2008) [facility] History of colonoscopy S/P epidural steroid injection S/P rotator cuff repair right shoulder History of open reduction and internal fixation (ORIF) procedure right ankle with hardware S/P lumbar fusion H/O left mastectomy with lymph node removal S/P CABG (coronary artery bypass graft) (2008) 2 vessels S/P vascular bypass (07/2000) Aortic-femoral bypass graft ([facility]) Family History Other No family history of adverse response to anesthesia Social History Smoking Status: Former smoker Tobacco Type: Cigarettes Cigarettes Per Day: 3 cigs/daily (advised on policy); Second Hand Exposure: No; Do You Dip or Chew Tobacco: No; Tobacco Cessation Education Requested by Patient: No Hx Alcohol Use: No Hx Substance Use: No Preferred Language: Sami Communication Ability: Effective Health Therapist Required: No Beliefs That Will Affect Care: None Current Living Situation: Spouse Other Information That Helps Us Care for You: No Feels Safe at Home: No Is there a partner from a previous relationship who is making you feel unsafe now?: No Any Concerns about Your Family Situation: No Would You Like to Speak to Someone About Your Situation: No Safety Concerns: Feels Safe At This Time Assistive Devices: Denture - Upper and Glasses Assistive Devices Comment: cane/walker prn Review of Systems Review of Systems: All systems reviewed & are unremarkable except as noted in Subjective Physical Exam Physical Exam: please refer to Dr. Noland's addendum for physical exam Results & Data Results & Data Vital Signs (Past 12 Hours) Vital Signs Temp Pulse Pulse Resp BP Pulse Ox O2 Del Method 05/24/24 17:59 36.8 C 96 H 20 135/71 100 Room Air 05/24/24 17:36 36.6 C 93 H 18 142/77 H 99 Room Air 05/24/24 17:30 36.8 C 97 H 20 142/77 H 98 Room Air 05/24/24 17:00 97 H 14 121/59 L 100 Nasal Cannula 05/24/24 16:45 99 H 12 144/53 H 99 Nasal Cannula 05/24/24 16:30 94 H 152/58 H 99 Nasal Cannula 05/24/24 16:15 96 H 15 170/62 H 100 Nasal Cannula 05/24/24 16:05 96 H 16 175/64 H 98 Nasal Cannula 05/24/24 15:55 36.4 C L 95 H 12 171/69 H 97 Nasal Cannula 05/24/24 15:45 105 H 12 161/70 H 91 Room Air 05/24/24 15:35 100 H 13 164/79 H 99 Room Air 05/24/24 15:25 99 H 12 177/74 H 97 Room Air 05/24/24 15:15 96 H 16 183/78 H 100 Oxymask 05/24/24 15:05 87 15 157/90 H 98 Oxymask 05/24/24 14:57 36.1 C L 83 13 175/66 H 99 Oxymask 05/24/24 10:31 36.7 C 99 H 18 144/94 H 97 Room Air O2 Flow Rate 05/24/24 17:59 05/24/24 17:36 05/24/24 17:30 05/24/24 17:00 2 05/24/24 16:45 2 05/24/24 16:30 2 05/24/24 16:15 2 05/24/24 16:05 2 05/24/24 15:55 2 05/24/24 15:45 05/24/24 15:35 05/24/24 15:25 05/24/24 15:15 5 05/24/24 15:05 5 05/24/24 14:57 5 05/24/24 10:31
[2024-05-24] MEDS: ceFAZolin 1000MG 1,000 MG/7.5 ML SYR IV SCH (20:35)
[2024-05-24] MEDS: ROSUVASTATIN CALCIUM 20 MG TAB PO SCH (20:36)
[2024-05-24] MEDS: DOCUSATE SODIUM/SENNA 50/8.6MG TAB PO SCH (20:36)
[2024-05-24] MEDS: MELATONIN 3 MG TAB PO SCH (20:36)
[2024-05-24] MEDS: EZETIMIBE 10 MG TAB PO SCH (20:37)
[2024-05-24] MEDS: traZODone HCL 50 MG TAB PO SCH (20:37)
[2024-05-24] MEDS: HYDROmorphone INJ 0.5 MG/0.5 ML SYR IV PRN (20:40)
[2024-05-25] MEDS: POLYETHYLENE (MIRALAX) 17 GM PACK PO SCH (06:15)
[2024-05-25 07:44] LABS: Basophils # (auto) 0.02 K/uL (0.00-0.20); Basophils % (auto) 0.2 %; Hemoglobin 11.1 g/dl (12.0-16.0); Immature Granulocytes # (auto) 0.06 K/uL (0.01-0.20); Immature Granulocytes % (auto) 0.5 %; Lymphocytes # (auto) 1.23 K/uL (1.20-3.40); Mean Corpuscular Hemoglobin 32.2 pg (25.0-34.0); Mean Corpuscular Hgb Conc 32.6 g/dL (32.0-36.0); Mean Corpuscular Volume 98.6 fL (80.0-100.0); Mean Platelet Volume 10.7 fL (9.4-12.4); Monocytes # (auto) 0.73 K/uL (0.11-0.59); Neutrophils % (auto) 83.3 %; Platelet Count 172 K/uL (130-400); RDW Coefficient of Variation 13.7 % (11.5-14.5); RDW Standard Deviation 49.7 fL (36.4-46.3); Red Blood Count 3.45 M/uL (4.20-5.40); White Blood Count 12.24 K/ul (4.8-10.8)
[2024-05-25] MEDS: oxyCODONE HCL IR 5 MG TAB (IMMEDIATE RELEASE) PO PRN (07:53)
[2024-05-25] MEDS: ATENOLOL 25 MG TABLET PO SCH (07:55)
[2024-05-25] MEDS: LOSARTAN POTASSIUM 25 MG TAB PO SCH (07:55)
[2024-05-25] MEDS: FAMOTIDINE 20 MG TAB PO SCH (07:55)
[2024-05-25] MEDS: DULoxetine HCL 60 MG CAP PO SCH (07:55)
[2024-05-25] MEDS: ASPIRIN 81 MG ECTAB PO SCH (07:55)
[2024-05-25] MEDS: ACETAMINOPHEN 325 MG TAB PO SCH (07:59)
[2024-05-25 08:05] LABS: BUN Creatinine Ratio 19.6 (10-20); Calcium 8.7 mg/dl (8.6-10.3); Creatinine Clr Calc Pharmacy 71.6 ml/min
[2024-05-25] MEDS ORDERED: dilTIAZem HCl 60 MG TAB PO SCH (09:00)
--- NOTE | 2024-05-25 10:40 | Orthopedic Progress Note ---
Date of Service May 25, 2024 Assessment & Plan (1) Lumbosacral spondylosis with radiculopathy: Plan: At this time continue physical therapy monitor DELROY operatively discharge home the next few days. Admission and Anticipated Discharge Date Admission Date: May 24, 2024 Subjective Patient's back pain is controlled leg symptoms improved. She has been up and ambulating in the room. Physical Exam Physical Exam: On exam she is in bed. She is comfortable. Discussed when to testing. Exam. Results & Data Vital Signs (Past 12 Hours) Vital Signs Temp Pulse Resp BP Pulse Ox O2 Del Method 05/25/24 07:03 36.7 C 87 16 114/65 97 Room Air 05/25/24 03:16 36.6 C 82 18 138/69 96 Room Air 05/24/24 23:47 36.7 C 91 H 18 112/65 94 Room Air
--- NOTE | 2024-05-25 11:20 | Hospitalist Progress Note ---
Date of Service May 25, 2024 Assessment & Plan (1) Lumbosacral spondylosis with radiculopathy: Plan: POD#1 Removal hardware L5-S1, decompression and fusion L4-L5 by Dr. Morris Activity and wound care orders as per ortho EBL 100 cc Pain is controlled PT/OT Hb is 11.1 (was 13 last month). 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 DVT PROPHYLAXIS TEDs/SCDs as per spine Ortho I spent a total of 45 minutes coordinating, documenting and providing care for this patient excluding time spent in performance of separately billed services Admission and Anticipated Discharge Date Admission Date: May 24, 2024 Subjective Patient seen and examined Reports surgical site pain is well controlled Denied any other complaints Physical Exam Constitutional: + well hydrated; no acute distress Eyes: PERRL, conjunctivae normal, anicteric sclerae ENMT: external ear and nose normal, oropharynx normal Respiratory: normal respiratory effort, lungs clear to auscultation Cardiovascular: Rate/Rhythm: regular rate and regular rhythm Gastrointestinal (Abdomen): normal bowel sounds, soft, nontender, no hepatosplenomegaly Musculoskeletal: Clean dressing over surgical site with drain in situ Neurologic: PERRL, EOMI, accommodation nl, no face palsy, no dysarthria Psychiatric: A+Ox3, euthymic affect Results & Data Results & Data Vital Signs (Past 12 Hours) Vital Signs Temp Pulse Resp BP Pulse Ox O2 Del Method 05/25/24 10:53 36.8 C 70 17 102/66 95 Room Air 05/25/24 07:03 36.7 C 87 16 114/65 97 Room Air 05/25/24 03:16 36.6 C 82 18 138/69 96 Room Air 05/24/24 23:47 36.7 C 91 H 18 112/65 94 Room Air Laboratory Results Abnormal lab results 05/25/24 Range/Units 06:55 WBC 12.24 H (4.8-10.8) K/ul RBC 3.45 L (4.20-5.40) M/uL Hgb 11.1 L (12.0-16.0) g/dl Hct 34.0 L (37.0-47.0) % RDW Std Deviation 49.7 H (36.4-46.3) fL Neut # (Auto) 10.20 H (1.40-6.50) K/uL [place] # (Auto) 0.73 H (0.11-0.59) K/uL Creatinine 0.51 L (0.6-1.2) mg/dl Glucose 173 H (70-99(Fasting)) mg/dl
[2024-05-25] MEDS: ACETAMINOPHEN 500 MG TAB PO PRN (14:43)
[2024-05-25 21:08] VITALS: RESP 16
[2024-05-26 07:08] LABS: Hematocrit (blood only) 30.6 % (37.0-47.0); Hemoglobin 9.8 g/dl (12.0-16.0); Mean Corpuscular Hemoglobin 32.2 pg (25.0-34.0); Mean Corpuscular Volume 100.7 fL (80.0-100.0); Mean Platelet Volume 10.7 fL (9.4-12.4); Platelet Count 142 K/uL (130-400); RDW Coefficient of Variation 13.5 % (11.5-14.5); RDW Standard Deviation 49.9 fL (36.4-46.3); Red Blood Count 3.04 M/uL (4.20-5.40); White Blood Count 8.51 K/ul (4.8-10.8)
[2024-05-26 08:36] LABS: BUN Creatinine Ratio 29.7 (10-20); Calcium 8.1 mg/dl (8.6-10.3); Creatinine Clr Calc Pharmacy 98.7 ml/min; Potassium 3.8 mmol/L (3.5-5.1)
--- NOTE | 2024-05-26 10:44 | Hospitalist Progress Note ---
Date of Service May 26, 2024 Assessment & Plan (1) Lumbosacral spondylosis with radiculopathy: Plan: POD#2 Removal hardware L5-S1, decompression and fusion L4-L5 by Dr. Morris Activity and wound care orders as per ortho EBL 100 cc Pain is controlled PT/OT Hb is 9.8 (was 13 last month). Possible dilutional vs blood loss Will monitor (2) CAD (coronary artery disease): Plan: History of CABG x 2 in 2008 Continue ASA 81mg daily Discussed with Dr Morris about plavix. 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 DVT PROPHYLAXIS TEDs/SCDs as per spine Ortho I spent a total of 40 minutes coordinating, documenting and providing care for this patient excluding time spent in performance of separately billed services Admission and Anticipated Discharge Date Admission Date: May 24, 2024 Subjective Patient seen and examined Patient walking around with walker Reports surgical site pain is well controlled Denied any other complaints Physical Exam Constitutional: + well hydrated; no acute distress Eyes: PERRL, conjunctivae normal, anicteric sclerae ENMT: external ear and nose normal, oropharynx normal Respiratory: normal respiratory effort, lungs clear to auscultation Cardiovascular: Rate/Rhythm: regular rate and regular rhythm Gastrointestinal (Abdomen): normal bowel sounds, soft, nontender, no hepatosplenomegaly Musculoskeletal: Dressing over surgical site. Drain in situ Neurologic: PERRL, EOMI, accommodation nl, no face palsy, no dysarthria Psychiatric: A+Ox3, euthymic affect Results & Data Results & Data Vital Signs (Past 12 Hours) Vital Signs Temp Pulse Resp BP Pulse Ox O2 Del Method 05/26/24 07:35 Room Air 05/26/24 07:25 36.8 C 82 16 102/52 L 94 Room Air Laboratory Results Abnormal lab results 05/26/24 05/26/24 Range/Units 06:45 06:47 RBC 3.04 L (4.20-5.40) M/uL Hgb 9.8 L (12.0-16.0) g/dl Hct 30.6 L (37.0-47.0) % MCV 100.7 H (80.0-100.0) fL RDW Std Deviation 49.9 H (36.4-46.3) fL Anion Gap 2 L (3-11) Creatinine 0.37 L (0.6-1.2) mg/dl BUN/Creatinine Ratio 29.7 H (10-20) Glucose 131 H (70-99(Fasting)) mg/dl Calcium 8.1 L (8.6-10.3) mg/dl
--- NOTE | 2024-05-26 10:49 | Orthopedic Progress Note ---
Date of Service May 26, 2024 Assessment & Plan (1) Lumbosacral spondylosis with radiculopathy: Plan: At this time continue physical therapy monitor DELROY output anticipate discharge home tomorrow. Admission and Anticipated Discharge Date Admission Date: May 24, 2024 Subjective Back pain controlled leg symptoms improved. Patient is up and ambulating halls without difficulty. Physical Exam Physical Exam: On exam she is up and ambulating. DELROY drain is functioning. Good strength testing. She is comfortable. Results & Data Vital Signs (Past 12 Hours) Vital Signs Temp Pulse Resp BP Pulse Ox O2 Del Method 05/26/24 07:35 Room Air 05/26/24 07:25 36.8 C 82 16 102/52 L 94 Room Air
[2024-05-27 07:17] LABS: Hematocrit (blood only) 32.8 % (37.0-47.0); Hemoglobin 10.7 g/dl (12.0-16.0); Mean Corpuscular Hemoglobin 32.5 pg (25.0-34.0); Mean Corpuscular Hgb Conc 32.6 g/dL (32.0-36.0); Mean Corpuscular Volume 99.7 fL (80.0-100.0); Mean Platelet Volume 10.8 fL (9.4-12.4); Platelet Count 160 K/uL (130-400); RDW Coefficient of Variation 13.2 % (11.5-14.5); RDW Standard Deviation 48.3 fL (36.4-46.3); Red Blood Count 3.29 M/uL (4.20-5.40); White Blood Count 7.06 K/ul (4.8-10.8)
[2024-05-27 07:32] LABS: BUN Creatinine Ratio 15.2 (10-20); Calcium 8.6 mg/dl (8.6-10.3); Creatinine Clr Calc Pharmacy 79.4 ml/min; Potassium 4.2 mmol/L (3.5-5.1)
[2024-05-27 07:50] VITALS: BP 92/57; PULSE 82; TEMP 98.4; O2SAT 96
--- NOTE | 2024-05-27 09:46 | Hospitalist Progress Note ---
Date of Service May 27, 2024 Assessment & Plan (1) Lumbosacral spondylosis with radiculopathy: Plan: POD#3 Removal hardware L5-S1, decompression and fusion L4-L5 by Dr. Morris Activity and wound care orders as per ortho EBL 100 cc Pain is controlled Hb is 10.7 today. (was 13 last month). Possible dilutional (2) CAD (coronary artery disease): Plan: History of CABG x 2 in 2008 Continue ASA 81mg daily Resume home plavix Continue statin and beta-adolfo (3) Peripheral vascular disease: Plan: S/p aortobifemoral bypass in 2000, chronic RLE occlusion (4) Hypertension: Plan: BP controlled Continue REGULATORY AFFAIRS ASSISTANT atenolol and losartan I spent a total of 35 minutes coordinating, documenting and providing care for this patient excluding time spent in performance of separately billed services Admission and Anticipated Discharge Date Admission Date: May 24, 2024 Subjective Patient seen and examined No new complaints Walking the hallways with a walker Physical Exam Constitutional: + well hydrated; no acute distress Eyes: PERRL, conjunctivae normal, anicteric sclerae ENMT: external ear and nose normal, oropharynx normal Respiratory: normal respiratory effort, lungs clear to auscultation Cardiovascular: Rate/Rhythm: regular rate and regular rhythm Gastrointestinal (Abdomen): normal bowel sounds, soft, nontender, no hepatosplenomegaly Musculoskeletal: Clean dressing over surgical site Neurologic: PERRL, EOMI, accommodation nl, no face palsy, no dysarthria Psychiatric: A+Ox3, euthymic affect Results & Data Results & Data Vital Signs (Past 12 Hours) Vital Signs Temp Pulse Resp BP Pulse Ox O2 Del Method 05/27/24 07:49 36.9 C 82 16 92/57 L 96 Room Air Laboratory Results Abnormal lab results 05/27/24 Range/Units 06:45 RBC 3.29 L (4.20-5.40) M/uL Hgb 10.7 L (12.0-16.0) g/dl Hct 32.8 L (37.0-47.0) % RDW Std Deviation 48.3 H (36.4-46.3) fL Sodium 135 L (136-145) mmol/L Carbon Dioxide 34 H (21-32) mmol/L Creatinine 0.46 L (0.6-1.2) mg/dl
--- NOTE | 2024-05-27 10:31 | Discharge Summary ---
Date of Service May 27, 2024 Admission HPI Per Admitting Provider This is a 73-year-old female known to me the presents with chronic persistent back and bilateral leg pain after failing course of nonoperative care is here for surgical invention. Principal Diagnosis Lumbar spondylosis with radiculopathy Discharge Data Allergies Allergy/AdvReac Type Severity Reaction Status Date / Time benzonatate Allergy Unknown Tessalon Verified 05/24/24 10:26 Perles- Rash gabapentin Allergy Bruising Verified 05/24/24 10:26 (per [facility] records) Consultations 05/24/24 17:36 Consult Hospitalist Routine Procedures Performed Operation Date: 05/24/24 11:35 Actual Procedures p L5-S1 Removal Hardware, L4-L5 Decompression and Fusion, Spinal Cord Monitoring(Not Applicable) - Nitish Morris DO Ordered Studies 05/24/24 11:35 FL lumbar spine 2-3V Routine Hospital Course (1) Lumbosacral spondylosis with radiculopathy: Patient underwent lumbar decompression fusion trial as well as taken to orthopedic for postoperative postop bleeding she progressed appropriately. DELROY drain decreasing. Extra strength testing. Pain well-controlled. Subsidy discharged home. Discharge orders instructions from the chart for further review. Total Time Total Time Spent Total Time Spent (In Minutes): 20 minutes Discharge Plan Discharge Items Patient Disposition: Home - Self-Care Reason For Visit: Spinal Stenosis of Lumbar Region with Radiculopath Discharge Diagnosis: Lumbar spondylosis with radiculopathy with spondylolisthesis L4-L5 Activity: As commented below Non-emergency contact: Primary Care Provider Call non-emergency contact if: you have any medication questions Follow-up/Referrals: Rei Magana MD [Primary Care Provider] - (Date & Time 05/31/2024 3:20 PM Provider: Eduardo No MD Family [facility], [place] ) Diet: Regular Addtl Attending Provider Instructions: ACTIVITY RECOMMENDATIONS: SELF CARE INSTRUCTIONS AFTER THORACIC/LUMBAR FUSIONS 1. You may walk to your tolerance. It is good exercise for your legs and back. Expect some back and intermittent leg aches and pains. 2. You may perform "counter-top" level activities (make a sandwich, leslie with a project, etc.). 3. No bending or lifting of more than 10 pounds or back twisting of any nature (roll like a log when turning in bed). 4. You may ride in a car for 20-30 minutes at a time. No driving until after your first visit with your doctor. 5. Frequent changes of position and restricting sitting to 30 minutes at a time will help limit the amount of back spasms and stiffness you may experience. 6. You may discontinue the use of ambulatory aids (cane, crutches, etc.) once your strength and confidence allow. 7. You may salsa dance instructor the shower and let water strike your incision when you arrive home at least once daily. Do not take a tub bath, sit in a hot tub or go into a swimming pool until after your first recheck in the office. 8. You may resume previous diet. SPECIAL CARE INSTRUCTIONS: VERY IMPORTANT TO READ AND REVIEW A. Your surgical incision has been closed with a cosmetic suture under the skin that will dissolve in about 6 weeks. In 14 days, you can use a pair of clean scissors and cut the suture that is left outside of the skin at the ends of your incision. 1. The small skin tapes can be removed 7 days after surgery if they have not fallen off by that point. 2. You may keep the wound open to air as much as possible to promote healing after post-op day number 5 unless told otherwise by your doctor. 3. If you think the wound looks like it is becoming infected (redness or worsening drainage) and/or you are experiencing fever, chill or worsening back pain and muscle spasms, contact the office so that we may evaluate you as soon as possible. B. Complications are uncommon, but please contact us if you have any signs or symptoms of: 1. wound infection (fever higher than 102.5 degrees F, redness, separation of wound, drainage, or increasing pain from the incision) 2. blood clots in legs (pain, swelling, redness and warmth in legs) 3. urinary tract infection (fever higher than 102.5 degrees F, burning upon urination or increased frequency of urination) 4. nerve problems (inability to walk on your toes or heels, numbness, loss of bowel or bladder control) 5. any other symptoms that concern you C. Please call the office at if you have any concerns or questions about your operation or recovery. D. No smoking! Smoking drastically decreases the chance of a solid fusion. E. Do not take any anti-inflammatory medications (Indocin, Advil, Motrin, Aspirin, Naprosyn, etc.) as these may inhibit the chance of a solid fusion. Tylenol is okay to take for pain. MANAGING PAIN AFTER SPINAL SURGERY 1. Narcotic medication is intended for short-term use and will be provided for surgical pain. Surgical pain usually lasts for a period of 4-6 weeks. Narcotic medication includes Percocet, Vicodin, Darvocet, Tylenol #3 or Lortab. 2. Longer-term pain is more appropriately treated with non-narcotic medication such as Tylenol ES. 3. Muscle spasm is not appropriately treated with narcotics. Muscle relaxers such as Soma, Flexeril or Skelaxin can be used along with Tylenol ES. 4. Remember that we all live with some "aches and pains". This is not unusual or uncommon after an injury or as we get older. a. Back pain is expected and may include muscle spasms for 4 to 6 weeks after surgery. The pain should gradually improve. If the pain worsens for no apparent reason, please contact the office. b. Intermittent leg pain may also be experienced and should not be concerned about unless it worsens for no apparent reason. If so, please contact the office. 5. We will provide appropriate medication within the normal guidelines of their prescribed use. We will also be very cautious and aware of potential abuse and extended duration of patients' medication needs. a. Pain medications are for your comfort and to assist with sleep and rest so that the tissue can heal. They are not provided in order to return to normal activity and should not be used through the day. To do so or worsening pain at night can result from ongoing tissue damage and development of tolerance to the prescribed medicine. 6. Please allow 2-3 days to process refills. Prescriptions will not be mailed but must be picked up at the office. FOLLOW UP VISIT: Keep your scheduled follow-up appointment. Any questions, please call the office at . Pending Studies at Discharge: No Stand-Alone Forms: My [employer], Smoking Cessation Medications and DC Order Prescriptions: New tramadol 50 mg tablet 50 mg PO Q6H PRN (Reason: pain, moderate) Qty: 30 0RF oxycodone 5 mg tablet 5 mg PO Q6H PRN (Reason: pain) Qty: 30 0RF Continued trazodone 50 mg Tablet 75 mg PO HS atenolol 25 mg Tablet 25 mg PO QAM melatonin 3 mg Tablet 3 mg PO HS clopidogrel [Plavix] 75 mg Tablet 75 mg PO QAM aspirin [Aspir-81] 81 mg Tablet,Delayed Release (Dr/Ec) 81 mg PO QAM acetaminophen [Tylenol 8 Hour] 650 mg Tablet Extended Release 650 mg PO DAILY famotidine 20 mg Tablet 20 mg PO DAILY losartan 25 mg Tablet 25 mg PO DAILY docusate sodium 100 mg Capsule 100 mg PO DAILY albuterol sulfate 90 mcg/actuation Hfa Aerosol Inhaler 1 inh INHALATION QID PRN (Reason: sob) ezetimibe [Zetia] 10 mg Tablet 10 mg PO HS rosuvastatin 40 mg Tablet 40 mg PO HS duloxetine 60 mg Capsule,Delayed Release(Dr/Ec) 60 mg PO DAILY Discharge Orders: Discharge Order (Routine); Ordered 05/27/24 Ordered By: Nitish Morris Admission Data Admit Date/Time: 05/24/24 16:48 Attending Provider: Nitish Morris Admit Provider: Nitish Morris Primary Care Provider: Rei Magana Other Providers: Reyna Hubbard
== END 2024-05-27 12:19 | disposition home or self-care (01) | DRG 402 ==
LOC: ASU 09:38 → PACUINP 16:48 → 3N 17:14